=== PATIENT | female | born 1935 | race Caucasian/White ===

== ENCOUNTER 2016-06-19 21:01 | Emergency (ER) | payer MEDICARE, BC ==
[2016-06-19 21:34] VITALS: PULSE 89; RESP 18; TEMP 98.1
[2016-06-19] MEDS ORDERED: KETOROLAC 30 MG/ML 1 ML VIAL IM STA (22:13)
--- NOTE | 2016-06-19 22:19 | ED ---
ENT HPI - General Chief complaint: ENT Stated complaint: ear pain/bleeding Source: patient, RN notes reviewed Mode of arrival: ambulatory Limitations: no limitations - History of Present Illness Initial comments: Patient is an 80 year old female with chief complaint of left ear pain after being outside in the could today at approximately 12:30 this afternoon. She reports she has a history of chronic ear problems and is hard of hearing. She reports she has seen Dr. Pizarro in regards to facial fractures a few months ago and manages her hearing problems. She states that at approximately 4pm her ear started to drain blood and clear liquid. She reports the pain has not subsided and took norco at home for this. She denies any fever or chills or pain prior to being out in the cold today. 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 She denies sinus pressure, pain, headache, sore throat. - Related Data Home Medications Medication Instructions Recorded Confirmed Atenolol [Tenormin] 50 mg PO DAILY 05/03/16 05/12/16 Folic Acid 1 mg PO DAILY 05/03/16 05/12/16 Levothyroxine Sodium [Synthroid] 175 mcg PO DAILY 05/03/16 05/12/16 Lisinopril-Hctz 10-12.5 mg 1 each PO DAILY 05/03/16 05/12/16 [Zestoretic 10-12.5] Potassium Chloride [Klor-Con 20] 20 meq PO BID 05/03/16 05/12/16 Pyridostigmine [place] [Mestinon] 60 mg PO BID 05/03/16 05/12/16 Vitamin E (Dl,Tocopheryl Acet) 400 unit PO DAILY 05/03/16 05/12/16 [Vitamin E] amLODIPine [Norvasc] 5 mg PO DAILY 05/03/16 05/12/16 HYDROcodone/APAP 5-325MG [[place] 1 tab PO BID PRN 05/12/16 05/12/16 5-325] Previous Rx's Medication Instructions Recorded Clindamycin HCl 300 mg PO Q12HR #20 cap 05/12/16 Hydrocodone/Acetaminophen [[place] 1 - 2 each PO Q6HR PRN #50 tab 05/12/16 5-325] Amoxic-Pot Clav 875-125Mg 1 tab PO Q12HR #20 tablet 06/19/16 [Augmentin 875-125] Ciprofloxacin Ophth Soln [Ciloxan 10 drops LEFT EAR BID #1 bottle 06/19/16 0.3% Ophth Soln] Allergies Allergy/AdvReac Type Severity Reaction Status Date / Time oxytetracycline Allergy Anaphylaxis Verified 06/19/16 21:34 [From Terramycin] Review of Systems ROS Statement: Those systems with pertinent positive or pertinent negative responses have been documented in the HPI. ROS Other: All systems not noted in ROS Statement are negative. Past Medical History Past Medical History: COPD, GERD/Reflux, Hyperlipidemia, Hypertension, Thyroid Disorder Additional Past Medical History / Comment(s): FELL AND BROKE FACE BONES WHILE IN THE SHOWER. STATES HAD SHINGLES ABOUT 3 MONTHS AGO History of Any Multi-Drug Resistant Organisms: None Reported Past Surgical History: Adenoidectomy, Appendectomy, Cholecystectomy, Joint Replacement, Tonsillectomy, Tubal Ligation Additional Past Surgical History / Comment(s): RT TKA, BILAT CATARACT SX. D & C X 2. BENIGN GROWTH REMOVED BY RT EAR Past Anesthesia/Blood Transfusion Reactions: No Reported Reaction Past Psychological History: No Psychological Hx Reported Smoking Status: Former smoker Past Alcohol Use History: None Reported Additional Past Alcohol Use History / Comment(s): QUIT SMOKING 1970 Past Drug Use History: None Reported - Past Family History Mother Family Medical History: No Reported History General Exam - General Exam Comments Initial Comments: Pleasant 80 year old female in no acute distress. she has a cloth up to her ear and sitting up in bed. Limitations: no limitations General appearance: alert, in no apparent distress Head exam: Present: atraumatic, normocephalic, normal inspection Eye exam: Present: normal appearance, PERRL, EOMI. Absent: scleral icterus, conjunctival injection, periorbital swelling ENT exam: Present: mucous membranes moist, TM's normal bilaterally ( erythematous and draining left TM. NO evidence of perforation. ). Absent: normal exam Neck exam: Present: normal inspection. Absent: tenderness, meningismus, lymphadenopathy Respiratory exam: Present: normal lung sounds bilaterally. Absent: respiratory distress, wheezes, rales, rhonchi, stridor Cardiovascular Exam: Present: regular rate, normal rhythm, normal heart sounds. Absent: systolic murmur, diastolic murmur, rubs, gallop, clicks Extremities exam: Present: normal inspection, full ROM, normal capillary refill. Absent: tenderness, pedal edema, joint swelling, calf tenderness Back exam: Present: normal inspection Neurological exam: Present: alert, oriented X3, CN II-XII intact Psychiatric exam: Present: normal affect, normal mood Skin exam: Present: warm, dry, intact, normal color. Absent: rash Course Vital Signs 06/19/16 06/19/16 21:31 22:50 Temperature 98.1 F Pulse Rate 89 89 Respiratory 18 18 Rate Blood Pressure 214/104 204/100 O2 Sat by Pulse 96 96 Oximetry Medical Decision Making - Medical Decision Making Patient is an 80 year old female with left ear pain since being in the cold earlier today. Sh reports bloody drainage for the past few hours. She has a erythematous and no evidence of significant perforation of the TM. It is possible patient has small perforation that she has in the past that has not properly healed. Patient will be placed on Augmentin and floxacin drops. Patient advised to take at home pain medication. Patient understands treatment plan and will comply. Patient advised to follow up with Dr. Jaimes. Return parameters discussed. Disposition Clinical Impression: Otitis media Disposition: HOME SELF-CARE Condition: Good Instructions: Earache (ED), Otitis Media (ED) Additional Instructions: Follow-up with Dr. Concepcion as directed. Take antibiotics and use drops as directed. Return to the EC if any alarming signs or symptoms occur. Continue to take at home pain medication. Prescriptions: Amoxic-Pot Clav 875-125Mg [Augmentin 875-125] 1 tab PO Q12HR #20 tablet Ciprofloxacin Ophth Soln [Ciloxan 0.3% Ophth Soln] 10 drops LEFT EAR BID #1 bottle Referrals: Chasity Perez MD [Primary Care Provider] - 1-2 days Amilcar Jaimes DO [Doctor of Osteopathic Medicine] - 1-2 days Time of Disposition: 22:19
[2016-06-19] MEDS ORDERED: cloNIDine HCL 0.1 MG TAB PO STA (22:41)
[2016-06-19 22:52] VITALS: BP 204/100
== END 2016-06-19 22:52 | disposition home or self-care (01) ==
LOC: EC 21:01
DX: H66.92 Otitis media, unspecified, left ear (principal); H91.92 Unspecified hearing loss, left ear; E07.9 Disorder of thyroid, unspecified; I10 Essential (primary) hypertension; Z87.891 Personal history of nicotine dependence; Z88.1 Allergy status to other antibiotic agents; Z79.899 Other long term (current) drug therapy
CPT/HCPCS: 99282; 96372; J1885

== ENCOUNTER 2016-06-20 17:51 | Inpatient (IN) | payer MEDICARE, BC ==
[2016-06-20] MEDS ORDERED: ACETAMINOPHEN IV (For NPO) 1,000 MG in EMPTY BAG 1 BAG IVPB STA (18:03)
[2016-06-20] MEDS ORDERED: SODIUM CHLORIDE 0.9% 1,000 ML IV STA ×3 (18:03→20:28)
[2016-06-20] MEDS ORDERED: IV VANCOMYCIN PER PHARMACY 1 EACH MISC MISCELLANE PRN (18:04)
[2016-06-20] MEDS ORDERED: KETOROLAC 30 MG/ML 1 ML VIAL IVP STA (18:04)
[2016-06-20] MEDS ORDERED: PROPOFOL 500 MG in EMPTY BAG 1 BAG IV ONE (18:17)
[2016-06-20] MEDS ORDERED: PIPERACILLIN-TAZOBACTAM 3.375 GM in DEXTROSE/WATER 1 50ML.BAG IVPB STA (18:18)
[2016-06-20 19:00] LABS: CH 30.1; CHCM 30.6; HCT 44.3 % (34.0-46.0); HDW 2.04; HGB 13.6 gm/dL (11.4-16.0); Hypochromasia Slight; Immature Gran Flag Marked; MCH 30.3 pg (25.0-35.0); MCHC 30.7 g/dL (31.0-37.0); MCV 98.7 fL (80.0-100.0); Mean Platelet Volume 8.2; RBC 4.49 m/uL (3.80-5.40); RDW 14.1 % (11.5-15.5); WBC 13.3 k/uL (3.8-10.6); WBC (Perox) 13.64
[2016-06-20] MEDS ORDERED: VANCOMYCIN 1,500 MG in SODIUM CHLORIDE 0.9% 250 ML IVPB ONE (19:00)
[2016-06-20 19:11] LABS: Appearance,Urine Clear (Clear); Bilirubin,Urine Negative (Negative); Glucose,Urine (UA) Negative (Negative); Ketones,Urine Negative (Negative); Leukocyte Esterase,Urine Negative (Negative); Nitrite,Urine Negative (Negative); Protein,Urine 1+ (Negative); RBC,Urine >182 /hpf (0-5); Specific Gravity,Urine 1.025 (1.001-1.035); Squamous Epithelial Cell,Urine <1 /hpf (0-4); UA Billing (MACRO vs. MICRO) MICRO; Urobilinogen,Urine <2.0 mg/dL (<2.0); WBC,Urine 2 /hpf (0-5)
[2016-06-20 19:12] LABS: Amorphous Sediment,Urine Occasional /hpf; Mucus,Urine Rare /hpf; Particle Count 1821
[2016-06-20 19:15] LABS: ALT 23 U/L (9-52); AST 28 U/L (14-36); Alkaline Phosphatase 94 U/L (38-126); Anion Gap 12 mmol/L; Blood Urea Nitrogen 14 mg/dL (7-17); Calcium 8.7 mg/dL (8.4-10.2); Carbon Dioxide 21 mmol/L (22-30); Chloride 106 mmol/L (98-107); Glucose 139 mg/dL (74-99); Magnesium 1.3 mg/dL (1.6-2.3); Non-African American GFR(MDRD) >60 (>60 ml/min/1.73 sqM); Phosphorous 2.4 mg/dL (2.5-4.5); Potassium 3.1 mmol/L (3.5-5.1); Sodium 139 mmol/L (137-145); Total Bilirubin 0.8 mg/dL (0.2-1.3)
--- NOTE | 2016-06-20 19:26 | ED ---
General Adult HPI - General Chief complaint: Altered Mental Status Stated complaint: confusion/weakness Time Seen by Provider: 06/20/16 17:55 Source: EMS, RN notes reviewed, old records reviewed Mode of arrival: EMS - History of Present Illness Initial comments: This is a 80-year-old female in the ER for evaluation. Patient is presenting for evaluation of mental status. Patient is unable with history secondary to being intubated and sedated at this time. History obtained from patient chart and EMS - Related Data Home Medications Medication Instructions Recorded Confirmed Atenolol [Tenormin] 50 mg PO DAILY 05/03/16 05/12/16 Folic Acid 1 mg PO DAILY 05/03/16 05/12/16 Levothyroxine Sodium [Synthroid] 175 mcg PO DAILY 05/03/16 05/12/16 Lisinopril-Hctz 10-12.5 mg 1 each PO DAILY 05/03/16 05/12/16 [Zestoretic 10-12.5] Potassium Chloride [Klor-Con 20] 20 meq PO BID 05/03/16 05/12/16 Pyridostigmine [place] [Mestinon] 60 mg PO BID 05/03/16 05/12/16 Vitamin E (Dl,Tocopheryl Acet) 400 unit PO DAILY 05/03/16 05/12/16 [Vitamin E] amLODIPine [Norvasc] 5 mg PO DAILY 05/03/16 05/12/16 HYDROcodone/APAP 5-325MG [[place] 1 tab PO BID PRN 05/12/16 05/12/16 5-325] Previous Rx's Medication Instructions Recorded Clindamycin HCl 300 mg PO Q12HR #20 cap 05/12/16 Hydrocodone/Acetaminophen [[place] 1 - 2 each PO Q6HR PRN #50 tab 05/12/16 5-325] Amoxic-Pot Clav 875-125Mg 1 tab PO Q12HR #20 tablet 06/19/16 [Augmentin 875-125] Ciprofloxacin Ophth Soln [Ciloxan 10 drops LEFT EAR BID #1 bottle 06/19/16 0.3% Ophth Soln] Allergies Allergy/AdvReac Type Severity Reaction Status Date / Time oxytetracycline Allergy Anaphylaxis Verified 06/20/16 18:14 [From Terramycin] polymyxin B Allergy Unknown Verified 06/20/16 18:45 Review of Systems ROS Statement: Those systems with pertinent positive or pertinent negative responses have been documented in the HPI. ROS Other: All systems not noted in ROS Statement are negative. Past Medical History Past Medical History: COPD, GERD/Reflux, Hyperlipidemia, Hypertension, Thyroid Disorder Additional Past Medical History / Comment(s): FELL AND BROKE FACE BONES WHILE IN THE SHOWER. STATES HAD SHINGLES ABOUT 3 MONTHS AGO History of Any Multi-Drug Resistant Organisms: None Reported Past Surgical History: Adenoidectomy, Appendectomy, Cholecystectomy, Joint Replacement, Tonsillectomy, Tubal Ligation Additional Past Surgical History / Comment(s): RT TKA, BILAT CATARACT SX. D & C X 2. BENIGN GROWTH REMOVED BY RT EAR Past Anesthesia/Blood Transfusion Reactions: No Reported Reaction Past Psychological History: No Psychological Hx Reported Smoking Status: Former smoker Past Alcohol Use History: None Reported Additional Past Alcohol Use History / Comment(s): QUIT SMOKING 1970 Past Drug Use History: None Reported - Past Family History Mother Family Medical History: No Reported History General Exam Limitations: altered mental status, physical limitation General appearance: obtunded Head exam: Present: atraumatic, normocephalic, normal inspection Eye exam: Present: normal appearance, PERRL, EOMI. Absent: scleral icterus, conjunctival injection, periorbital swelling ENT exam: Present: normal exam, mucous membranes moist Neck exam: Present: normal inspection. Absent: tenderness, meningismus, lymphadenopathy Respiratory exam: Present: normal lung sounds bilaterally. Absent: respiratory distress, wheezes, rales, rhonchi, stridor Cardiovascular Exam: Present: normal rhythm, tachycardia, normal heart sounds. Absent: systolic murmur, diastolic murmur, rubs, gallop, clicks GI/Abdominal exam: Present: soft, normal bowel sounds. Absent: distended, tenderness, guarding, rebound, rigid Extremities exam: Present: normal inspection, full ROM, normal capillary refill. Absent: tenderness, pedal edema, joint swelling, calf tenderness Back exam: Present: normal inspection Neurological exam: Present: alert, oriented X3, CN II-XII intact Psychiatric exam: Present: normal affect, normal mood Skin exam: Present: warm, dry, intact, normal color. Absent: rash Course Vital Signs 06/20/16 06/20/16 18:15 19:13 Temperature 98.4 F 100.4 F H Pulse Rate 120 H 150 H Respiratory 20 20 Rate Blood Pressure 177/91 178/88 O2 Sat by Pulse 99 100 Oximetry - Reevaluation(s) Reevaluation #1: 06/20/16 19:22 Spoke with transient physician regarding patient, patient with positive fever, positive altered mental status Reevaluation #2: 06/20/16 19:23 2 attempts were made at getting lumbar puncture with patient in upright sitting position. Procedures - Lumbar Puncture Consent Obtained: emergent situation Time Out Performed: Yes Indication for Procedure: fever work up Patient Position: sitting upright/leaning forward Skin Prep: Povidone-Iodine 1% Spinal Needle Gauge: 22G Spinal Needle Length: 3in Interspace Used: L4-L5 Complications: unable to obtain CSF Medical Decision Making - Medical Decision Making 80 female to the ED, patient was a transfer paperwork for altered mental status fever and sepsis. Patient at this time is being covered for broad-spectrum coverage of possible infections including meningitis, septic ear infection or meningitis from possible [place] mastoiditis from ear infection. Patient will be admitted to the ICU for evaluation and treatment hemodynamic status and monitoring - Lab Data Result diagrams: 06/20/16 18:38 06/20/16 18:38 Lab Results 06/20/16 06/20/16 06/20/16 Range/Units 18:38 18:38 18:38 WBC 13.3 H (3.8-10.6) k/uL RBC 4.49 (3.80-5.40) m/uL Hgb 13.6 (11.4-16.0) gm/dL Hct 44.3 (34.0-46.0) % MCV 98.7 (80.0-100.0) fL MCH 30.3 (25.0-35.0) pg MCHC 30.7 L (31.0-37.0) g/dL RDW 14.1 (11.5-15.5) % Plt Count 181 (150-450) k/uL Sodium 139 (137-145) mmol/L Potassium 3.1 L (3.5-5.1) mmol/L Chloride 106 (98-107) mmol/L Carbon Dioxide 21 L (22-30) mmol/L Anion Gap 12 mmol/L BUN 14 (7-17) mg/dL Creatinine 0.67 (0.52-1.04) mg/dL Est GFR (MDRD) Af Amer >60 (>60 ml/min/1.73 sqM) Est GFR (MDRD) Non-Af >60 (>60 ml/min/1.73 sqM) Glucose 139 H (74-99) mg/dL Calcium 8.7 (8.4-10.2) mg/dL Phosphorus 2.4 L (2.5-4.5) mg/dL Magnesium 1.3 L (1.6-2.3) mg/dL Total Bilirubin 0.8 (0.2-1.3) mg/dL AST 28 (14-36) U/L ALT 23 (9-52) U/L Alkaline Phosphatase 94 (38-126) U/L Total Creatine Kinase 151 H (30-135) U/L Total Protein 7.0 (6.3-8.2) g/dL Albumin 3.6 (3.5-5.0) g/dL Urine Color Urine Appearance (Clear) Urine pH (5.0-8.0) Ur Specific [place] (1.001-1.035) Urine Protein (Negative) Urine Glucose (UA) (Negative) Urine Ketones (Negative) Urine Blood (Negative) Urine Nitrate (Negative) Urine Bilirubin (Negative) Urine Urobilinogen (<2.0) mg/dL Ur Leukocyte Esterase (Negative) Urine RBC (0-5) /hpf Urine WBC (0-5) /hpf Ur Squamous Epith Cells (0-4) /hpf Amorphous Sediment (None) /hpf Urine Mucus (None) /hpf 06/20/16 Range/Units 18:38 WBC (3.8-10.6) k/uL RBC (3.80-5.40) m/uL Hgb (11.4-16.0) gm/dL Hct (34.0-46.0) % MCV (80.0-100.0) fL MCH (25.0-35.0) pg MCHC (31.0-37.0) g/dL RDW (11.5-15.5) % Plt Count (150-450) k/uL Sodium (137-145) mmol/L Potassium (3.5-5.1) mmol/L Chloride (98-107) mmol/L Carbon Dioxide (22-30) mmol/L Anion Gap mmol/L BUN (7-17) mg/dL Creatinine (0.52-1.04) mg/dL Est GFR (MDRD) Af Amer (>60 ml/min/1.73 sqM) Est GFR (MDRD) Non-Af (>60 ml/min/1.73 sqM) Glucose (74-99) mg/dL Calcium (8.4-10.2) mg/dL Phosphorus (2.5-4.5) mg/dL Magnesium (1.6-2.3) mg/dL Total Bilirubin (0.2-1.3) mg/dL AST (14-36) U/L ALT (9-52) U/L Alkaline Phosphatase (38-126) U/L Total Creatine Kinase (30-135) U/L Total Protein (6.3-8.2) g/dL Albumin (3.5-5.0) g/dL Urine Color Yellow Urine Appearance Clear (Clear) Urine pH 6.0 (5.0-8.0) Ur Specific [place] 1.025 (1.001-1.035) Urine Protein 1+ H (Negative) Urine Glucose (UA) Negative (Negative) Urine Ketones Negative (Negative) Urine Blood Large H (Negative) Urine Nitrate Negative (Negative) Urine Bilirubin Negative (Negative) Urine Urobilinogen <2.0 (<2.0) mg/dL Ur Leukocyte Esterase Negative (Negative) Urine RBC >182 H (0-5) /hpf Urine WBC 2 (0-5) /hpf Ur Squamous Epith Cells <1 (0-4) /hpf Amorphous Sediment Occasional H (None) /hpf Urine Mucus Rare H (None) /hpf - Radiology Data Radiology results: image reviewed (CT brain from transferring facility was negative) Critical Care Time Critical Care Time: Yes Total Critical Care Time: 31 Disposition Clinical Impression: Altered mental status, Otitis media, Fever, SIRS (systemic inflammatory response syndrome), SVT (supraventricular tachycardia), Sinus tachycardia Disposition: ADMITTED IP TO THIS [facility] Condition: Critical Referrals: Chasity Perez MD [Primary Care Provider] - 1-2 days
[2016-06-20] MEDS: SODIUM CHLORIDE 0.9% 1,000 ML IV STA ×2 (19:41→23:04)
--- NOTE | 2016-06-20 19:53 | XR ---
EXAMINATION TYPE: XR chest 1V portable DATE OF EXAM: 06/20/2016 7:49 PM HISTORY: Shortness of breath. COMPARISON: None. TECHNIQUE: Single view of the chest is submitted. FINDINGS: Endotracheal tube and NG tubes are appropriately placed. Demonstrated are scattered senescent parenchymal change. There is no evidence for focal infiltrate. The heart is stable. Hilar and mediastinal structures are within normal limits. Degenerative changes are seen of the dorsal spine. IMPRESSION: 1. Chronic changes without evidence for acute pulmonary disease.
[2016-06-20 19:54] LABS: INR 1.2 (<1.1); Prothrombin Time 12.2 sec (9.0-12.0)
[2016-06-20 19:55] LABS: Partial Thromboplastin Time 21.6 sec (22.0-30.0)
[2016-06-20 19:58] LABS: Troponin I 0.341 ng/mL (0.000-0.034)
[2016-06-20 19:59] LABS: Add Differential Manual Differential
[2016-06-20 20:02] LABS: Manual Review Performed; Nucleated Red Blood Cells 0 /100 WBC (0-0); Total Cells Counted 100
--- NOTE | 2016-06-20 20:08 | ED ---
Medical Decision Making - Lab Data Result diagrams: 06/20/16 18:38 06/20/16 18:38 Lab Results 06/20/16 06/20/16 06/20/16 Range/Units 18:38 18:38 18:38 WBC 13.3 H (3.8-10.6) k/uL RBC 4.49 (3.80-5.40) m/uL Hgb 13.6 (11.4-16.0) gm/dL Hct 44.3 (34.0-46.0) % MCV 98.7 (80.0-100.0) fL MCH 30.3 (25.0-35.0) pg MCHC 30.7 L (31.0-37.0) g/dL RDW 14.1 (11.5-15.5) % Plt Count 181 (150-450) k/uL Neutrophils % (Manual) 65.0 % Band Neutrophils % 26.0 % Lymphocytes % (Manual) 4.0 % Monocytes % (Manual) 5.0 % Neutrophils # (Manual) 12.1 H (1.3-7.7) k/uL Lymphocytes # (Manual) 0.5 L (1.0-4.8) k/uL Monocytes # (Manual) 0.7 (0-1.0) k/uL Nucleated RBCs 0 (0-0) /100 WBC Manual Slide Review Performed Hypochromasia Slight PT (9.0-12.0) sec INR (<1.1) APTT (22.0-30.0) sec Sodium 139 (137-145) mmol/L Potassium 3.1 L (3.5-5.1) mmol/L Chloride 106 (98-107) mmol/L Carbon Dioxide 21 L (22-30) mmol/L Anion Gap 12 mmol/L BUN 14 (7-17) mg/dL Creatinine 0.67 (0.52-1.04) mg/dL Est GFR (MDRD) Af Amer >60 (>60 ml/min/1.73 sqM) Est GFR (MDRD) Non-Af >60 (>60 ml/min/1.73 sqM) Glucose 139 H (74-99) mg/dL Calcium 8.7 (8.4-10.2) mg/dL Phosphorus 2.4 L (2.5-4.5) mg/dL Magnesium 1.3 L (1.6-2.3) mg/dL Total Bilirubin 0.8 (0.2-1.3) mg/dL AST 28 (14-36) U/L ALT 23 (9-52) U/L Alkaline Phosphatase 94 (38-126) U/L Total Creatine Kinase 151 H (30-135) U/L CK-MB (CK-2) 4.0 H* (0.0-2.4) ng/mL CK-MB (CK-2) Rel Index 2.6 Troponin I 0.341 H* (0.000-0.034) ng/mL Total Protein 7.0 (6.3-8.2) g/dL Albumin 3.6 (3.5-5.0) g/dL Urine Color Urine Appearance (Clear) Urine pH (5.0-8.0) Ur Specific [place] (1.001-1.035) Urine Protein (Negative) Urine Glucose (UA) (Negative) Urine Ketones (Negative) Urine Blood (Negative) Urine Nitrate (Negative) Urine Bilirubin (Negative) Urine Urobilinogen (<2.0) mg/dL Ur Leukocyte Esterase (Negative) Urine RBC (0-5) /hpf Urine WBC (0-5) /hpf Ur Squamous Epith Cells (0-4) /hpf Amorphous Sediment (None) /hpf Urine Mucus (None) /hpf 06/20/16 06/20/16 Range/Units 18:38 18:38 WBC (3.8-10.6) k/uL RBC (3.80-5.40) m/uL Hgb (11.4-16.0) gm/dL Hct (34.0-46.0) % MCV (80.0-100.0) fL MCH (25.0-35.0) pg MCHC (31.0-37.0) g/dL RDW (11.5-15.5) % Plt Count (150-450) k/uL Neutrophils % (Manual) % Band Neutrophils % % Lymphocytes % (Manual) % Monocytes % (Manual) % Neutrophils # (Manual) (1.3-7.7) k/uL Lymphocytes # (Manual) (1.0-4.8) k/uL Monocytes # (Manual) (0-1.0) k/uL Nucleated RBCs (0-0) /100 WBC Manual Slide Review Hypochromasia PT 12.2 H (9.0-12.0) sec INR 1.2 (<1.1) APTT 21.6 L (22.0-30.0) sec Sodium (137-145) mmol/L Potassium (3.5-5.1) mmol/L Chloride (98-107) mmol/L Carbon Dioxide (22-30) mmol/L Anion Gap mmol/L BUN (7-17) mg/dL Creatinine (0.52-1.04) mg/dL Est GFR (MDRD) Af Amer (>60 ml/min/1.73 sqM) Est GFR (MDRD) Non-Af (>60 ml/min/1.73 sqM) Glucose (74-99) mg/dL Calcium (8.4-10.2) mg/dL Phosphorus (2.5-4.5) mg/dL Magnesium (1.6-2.3) mg/dL Total Bilirubin (0.2-1.3) mg/dL AST (14-36) U/L ALT (9-52) U/L Alkaline Phosphatase (38-126) U/L Total Creatine Kinase (30-135) U/L CK-MB (CK-2) (0.0-2.4) ng/mL CK-MB (CK-2) Rel Index Troponin I (0.000-0.034) ng/mL Total Protein (6.3-8.2) g/dL Albumin (3.5-5.0) g/dL Urine Color Yellow Urine Appearance Clear (Clear) Urine pH 6.0 (5.0-8.0) Ur Specific [place] 1.025 (1.001-1.035) Urine Protein 1+ H (Negative) Urine Glucose (UA) Negative (Negative) Urine Ketones Negative (Negative) Urine Blood Large H (Negative) Urine Nitrate Negative (Negative) Urine Bilirubin Negative (Negative) Urine Urobilinogen <2.0 (<2.0) mg/dL Ur Leukocyte Esterase Negative (Negative) Urine RBC >182 H (0-5) /hpf Urine WBC 2 (0-5) /hpf Ur Squamous Epith Cells <1 (0-4) /hpf Amorphous Sediment Occasional H (None) /hpf Urine Mucus Rare H (None) /hpf Disposition Clinical Impression: Altered mental status, Otitis media, Fever, SIRS (systemic inflammatory response syndrome), SVT (supraventricular tachycardia), Sinus tachycardia, Meningitis Disposition: ADMITTED IP TO THIS HOSP Condition: Critical Referrals: Chasity Perez MD [Primary Care Provider] - 1-2 days
[2016-06-20] MEDS ORDERED: NALOXONE 0.4 MG/ML 1 ML VIAL IV PRN (20:25)
[2016-06-20] MEDS: MAGNESIUM SULFATE-D5W PMX 1 GM in DEXTROSE/WATER 1 100ML.BAG IVPB SCH ×2 (20:26→21:51)
[2016-06-20] MEDS ORDERED: SODIUM CHLORIDE 0.9% 500 ML IV STA (20:28)
[2016-06-20] MEDS ORDERED: SODIUM CHLORIDE 0.9% 2,000 ML IV STA (20:28)
[2016-06-20] MEDS: SODIUM CHLORIDE 0.9% 500 ML IV SCH ×2 (20:31→23:04)
[2016-06-20 20:36] LABS: Glucose,CSF <20 mg/dL (40-70)
[2016-06-20 20:58] LABS: Appearance,CSF Cloudy
[2016-06-20] MEDS ORDERED: DILTIAZEM 5 MG/ML 5 ML VIAL IVP STA (21:03)
[2016-06-20 21:15] LABS: Diff, Total Cells Cnt, CSF 100; Polynuclear WBC,CSF 95 %
--- NOTE | 2016-06-20 22:46 | CT ---
EXAMINATION TYPE: CT iac wo con DATE OF EXAM: 06/20/2016 10:30 PM COMPARISON: NONE HISTORY: Ear infection followed by altered mental status. CT DLP: 142.70mGycm Automated exposure control for dose reduction was used. FINDINGS: There is normal appearance of the right external auditory canal and the middle ear cavity. There is normal aeration of the epitympanic recess on the right side. There is an air-filled cavity i n the right temporal bone consistent with mastoidectomy. On the left side there is complete opacification of the left mastoid air cells. There is also soft ti ssue swelling and occlusion of the left external auditory canal externally. There is air in the inner aspect of the external auditory canal. There is complete opacification of the left middle ear cavity . I see no focal bone destruction. There is some sclerosis in the left mastoid sinus. There is normal appearance of the internal auditory canals. I see no evidence of a cerebellopontine a ngle mass. The exam is limited by lack of contrast. There is mucosal thickening in the sphenoid ethmoid and maxillary sinuses. IMPRESSION: Previous right mastoid surgery. There is evidence of otitis externa and interna on the left side with complete opacification of the m iddle ear cavity. 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 There is pansinusitis. The possibility of cholesteatoma should be considered involving the left middl e ear.
[2016-06-20 23:02] LABS: Glucose,Whole Blood 197 mg/dL (75-99)
[2016-06-20] MEDS: FAMOTIDINE 20 MG/2 ML VIAL IV SCH (23:05)
[2016-06-20 23:07] LABS: ABG PCO2 37 mmHg (35-45); ABG PH 7.32 (7.35-7.45); ABG PO2 109 mmHg (83-108)
[2016-06-20 23:08] LABS: ABG Base Excess -6.3 mmol/L; ABG HCO3 19 mmol/L (21-25); ABG TCO2 20 mmol/L (19-24)
--- NOTE | 2016-06-20 23:33 | P.PN ---
Progress Note - Text Anesthesia was requested to perform a lumbar puncture by Dr. Guanaco Dodge. The patient has a suspected history of meningitis. Attempts to perform a lumbar puncture by the emergency room physicians were unsuccessful. The patient is currently intubated and unresponsive. The patient was placed in the right lateral recumbent position. The low back was sterilely prepped and draped. After local infiltration with 1% Xylocaine a 22-gauge quickie needle was placed in the subarachnoid space at L3-L4. This was performed without difficulty. Proximally 8 mL of spinal fluid was obtained. Approximately 2 mL per collection tube. Fluid was cloudy and remained cloudy in all 4 tubes. The needle was withdrawn. The patient tolerated the procedure well. The color and turbidity of the fluid was reported to the emergency room physician. The collection tubes were sent to lab per per the emergency room.
[2016-06-21] MEDS ORDERED: PIPERACILLIN-TAZOBACTAM 3.375 GM in DEXTROSE/WATER 1 50ML.BAG IVPB SCH
[2016-06-21] MEDS: PYRIDOSTIGMINE 60 MG TAB PO SCH ×3 (00:05→15:51)
[2016-06-21] MEDS ORDERED: LORazepam 2 MG/ML SYRINGE IV PRN (00:20)
[2016-06-21] MEDS ORDERED: PROPOFOL 50 ML IV ONE ×4 (01:54→19:01)
[2016-06-21 01:56] LABS: Creatine Kinase MB 6.5 ng/mL (0.0-2.4); Troponin I 1.06 ng/mL (0.000-0.034)
[2016-06-21] MEDS: MORPHINE SULFATE 4 MG/ML SYRINGE IV PRN ×2 (04:34→17:48)
[2016-06-21 05:17] LABS: ABG Base Excess -4.5 mmol/L; ABG HCO3 20 mmol/L (21-25); ABG PCO2 32 mmHg (35-45); ABG PO2 157 mmHg (83-108); ABG TCO2 21 mmol/L (19-24)
[2016-06-21 06:13] LABS: Glucose,Whole Blood 116 mg/dL (75-99)
[2016-06-21 07:12] LABS: CHCM 29.9; HCT 40.3 % (34.0-46.0); HDW 2.07; HGB 11.9 gm/dL (11.4-16.0); Hypochromasia Moderate; Immature Gran Flag Marked; MCH 29.8 pg (25.0-35.0); MCHC 29.6 g/dL (31.0-37.0); MCV 100.9 fL (80.0-100.0); Macrocytosis Slight; RDW 14.2 % (11.5-15.5); WBC 20.5 k/uL (3.8-10.6); WBC (Perox) 21.59
[2016-06-21 07:16] LABS: ALT 27 U/L (9-52); AST 22 U/L (14-36); Alkaline Phosphatase 71 U/L (38-126); Anion Gap 9 mmol/L; Blood Urea Nitrogen 14 mg/dL (7-17); Calcium 7.8 mg/dL (8.4-10.2); Carbon Dioxide 21 mmol/L (22-30); Chloride 108 mmol/L (98-107); Glucose 114 mg/dL (74-99); Non-African American GFR(MDRD) >60 (>60 ml/min/1.73 sqM); Phosphorous 3.3 mg/dL (2.5-4.5); Potassium 3.6 mmol/L (3.5-5.1); Sodium 138 mmol/L (137-145); Total Bilirubin 0.3 mg/dL (0.2-1.3); Total Protein 5.4 g/dL (6.3-8.2)
[2016-06-21 07:52] LABS: Add Differential Manual Differential; Creatine Kinase MB 6.3 ng/mL (0.0-2.4); Troponin I 1.15 ng/mL (0.000-0.034)
[2016-06-21 07:57] LABS: Metamyelocytes % 0.5 %; Nucleated Red Blood Cells 0 /100 WBC (0-0); Total Cells Counted 200
--- NOTE | 2016-06-21 08:11 | XR ---
EXAMINATION TYPE: XR chest 1V portable DATE OF EXAM: 06/21/2016 7:02 AM CLINICAL HISTORY: Difficulty breathing progress study. TECHNIQUE: Single AP portable semiupright view of the chest is obtained. COMPARISON: Chest x-ray from one day earlier FINDINGS: An endotracheal tube, and orogastric tube are stable in appearance. Cardiac silhouette size is stable and upper limits of normal with atherosclerotic thoracic aorta. The re is chronic parenchymal change without suspicious focal airspace opacity, pleural effusion, or pneu mothorax seen bilaterally. Osseous structures are demineralized. High riding humeral head suggests ch ronic rotator cuff tears bilaterally. IMPRESSION: Overall stable findings, chronic parenchymal changes without acute pulmonary process.
--- NOTE | 2016-06-21 08:38 | P.CNPUL ---
History of Present Illness Consult date: 06/21/16 Chief complaint: Meningitis History of present illness: 80-year-old female patient who initially presented to [facility] with fever, change in mental status and agitation. The patient accordingly was transferred to our hospital for further care. In the emergency department the patient was found to be significantly confused and at a later stage became unresponsive, and she was intubated and placed on a mechanical ventilator. Lumbar puncture was done and the patient was found to have abnormalities consistent with acute meningitis specifically with elevated CSF white cell count , low glucose and markedly elevated protein. The Gram stain is showing gram- positive cocci. As such the patient was given a dose of vancomycin and started on Rocephin 2 g every 12 hours. The patient was kept intubated and then got moved to the intensive care unit for further care. This patient has previous history of chronic ear infections and mastoids disease /mastoiditis. The patient had a fall approximately 6 weeks ago and she had her face on a metal bar at the shower door. She end up having a very bloody large right glabellar laceration, left eyebrow laceration and ended up having a nasal bone and septal fracture with septum being deviated to the left. CAT scan was done back then and it showed medial maxillary sinus fracture and septal deviation/fracture along with the glabellar and left brow laceration. Based on this, the patient was taken to the operating room by ENT on 05/12/2016 and the patient underwent open reduction of a nasal bone fracture with fixation, septoplasty, closed reduction of the left axillary fracture. Subsequently, the patient was seen in our emergency department on 06/19/2016 for left ear pain. She was also having difficulty in hearing. There was also reported drainage from the left ear where bloody purulent drainage was reported. She denies having any fever or headache neck stiffness or any change in mental status back then. Apparently there is history of bilateral perforation of the eardrums. The patient accordingly was given Augmentin network technician 875 mg 1 tablet twice a day in addition to ciprofloxacin ear solution and she was discharged home to be followed up by her primary care physician and ENT. Her condition decompensated and she presented back to the emergency department a day later with acute meningitis. At this point in time, the patient is intubated on a mechanical ventilator. She is an assist-control mode of breathing at the rate of 12, tidal volume 450, FiO2 of 50% and a PEEP of 5. She had received a total of 2 L of IV fluid in the form of normal saline as bolus and she is hemodynamically stable. She is on no pressors. She is currently on a maintenance fluid of 0.9 normal saline at the rate of 100 mL an hour. She is sedated with Diprivan and it is running at 25 mics. She is producing adequate amount of urine output. CAT scan of the auditory canals showed evidence of otitis externa and otitis interna on the left side with complete opacification of the middle ear cavity. There is also also sclerosis of the left mastoid consistent with chronic mastoiditis. The patient also had evidence of pansinusitis. Possibility of cholesteatoma was also raised in the left ear. The left ear is currently draining some purulent material and the drainage is cloudy/creamy and nonbloody. Note that in the emergency department the patient went into SVT. The patient was given adenosine and subsequently she converted into A. fib/RVR and then into sinus rhythm. Her current rhythm is sinus at this point. 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, hypertension, impaired hearing, station tube dysfunction, chronic perforation of the tympanic membrane, hypothyroidism, GERD History of Any Multi-Drug Resistant Organisms: None Reported Past Surgical History: Adenoidectomy, Appendectomy, Cholecystectomy, Joint Replacement, Tonsillectomy, Tubal Ligation Additional Past Surgical History / Comment(s): Right total knee replacement, bilateral cataract surgery, D&C, benign growth removed from the right ear, recent surgery involving open reduction of the nasal bone fracture with fixation , septoplasty and closed reduction of a left maxillary fracture. Past Anesthesia/Blood Transfusion Reactions: No Reported Reaction Past Psychological History: No Psychological Hx Reported Smoking Status: Former smoker Past Alcohol Use History: None Reported Additional Past Alcohol Use History / Comment(s): QUIT SMOKING 1970 Past Drug Use History: None Reported - Past Family History Mother Family Medical History: No Reported History Medications and Allergies Home Medications Medication Instructions Recorded Confirmed Type Atenolol [Tenormin] 50 mg PO DAILY 05/03/16 06/20/16 History Folic Acid 1 mg PO DAILY 05/03/16 06/20/16 History Levothyroxine Sodium [Synthroid] 175 mcg PO DAILY 05/03/16 06/20/16 History Lisinopril-Hctz 10-12.5 mg 1 tab PO DAILY 05/03/16 06/20/16 History [Zestoretic 10-12.5] Pyridostigmine [place] [Mestinon] 60 mg PO TID 05/03/16 06/20/16 History amLODIPine [Norvasc] 5 mg PO DAILY 05/03/16 06/20/16 History HYDROcodone/APAP 5-325MG [[place] 1 tab PO BID PRN 05/12/16 06/20/16 History 5-325] Esomeprazole Magnesium [NexIUM] 40 mg PO DAILY 06/20/16 06/20/16 History Lovastatin [Mevacor] 20 mg PO HS 06/20/16 06/20/16 History Potassium Bicarbonate/Cit AC 25 meq PO DAILY 06/20/16 06/20/16 History [Potassium 25 Meq Tablet Eff] Allergies Allergy/AdvReac Type Severity Reaction Status Date / Time oxytetracycline Allergy Anaphylaxis Verified 06/20/16 18:14 [From Terramycin] polymyxin B Allergy Unknown Verified 06/20/16 18:45 Physical Exam Vitals: Vital Signs Temp Pulse Resp BP Pulse Ox 06/21/16 08:00 99 14 94/50 98 06/21/16 07:30 98 13 93/53 97 06/21/16 07:00 99 12 93/48 97 06/21/16 06:30 101 H 13 90/51 98 06/21/16 06:00 100 13 97/54 98 06/21/16 05:30 101 H 14 104/59 99 06/21/16 05:00 100 13 136/79 99 06/21/16 04:30 97.0 F L 111 H 12 145/80 98 06/21/16 04:00 106 H 20 137/77 98 06/21/16 03:30 105 H 19 124/73 99 06/21/16 03:00 102 H 21 116/78 98 06/21/16 02:30 104 H 22 120/73 98 06/21/16 02:00 111 H 17 110/69 98 06/21/16 01:30 100 20 98/62 98 06/21/16 01:00 98 18 96/64 99 06/21/16 00:30 99 20 98/62 99 06/21/16 00:00 101 H 17 97/59 98 06/20/16 23:30 103 H 18 103/63 98 06/20/16 23:00 97.8 F 109 H 18 154/87 97 06/20/16 22:04 97.0 F L 120 H 18 157/68 99 06/20/16 20:34 152 H 20 167/81 98 06/20/16 20:10 98.1 F 160 H 20 144/102 98 Intake and Output 06/20/16 06/21/16 06/21/16 22:59 06:59 14:59 Intake Total 850.0 200 Output Total 672 89 Balance 178.0 111 Intake: IV 850.0 200 Piperacillin-Tazobactam 3 50.0 .375 gm In Dextrose/Water 1 50ml.bag @ 12.5 mls/hr IVPB ONCE STA Rx#: [id number] Sodium Chloride 0.9% 1, 800 200 000 ml @ 100 mls/hr IV . Q10H STA Rx#:[id number] Output: Gastric Drainage 250 Urine 422 89 Other: Voiding Method Indwelling Catheter Weight 77.4 kg ABP, PAP, CO, CI - Last 8 Hours Arterial Blood Pressure 94/46 Arterial Blood Pressure 91/44 Arterial Blood Pressure 96/49 Arterial Blood Pressure 99/47 Arterial Blood Pressure 98/44 Patient is sedated, intubated, on a mechanical ventilator. Orogastric and orotracheal tube are both in place. Head is atraumatic and normocephalic. There is no neck stiffness. There is no goiter or neck masses. There is no JVDs. No cervical lymphadenopathy. The left ear canal is completely obliterated with purulent material and appropriate dressing was applied to control the drainage. Examination of the left ear was somewhat limited because of the excess amount of purulent material occupying the left ear canal. The eardrum and the tympanic membrane and the rest of the the structures cannot be assessed. No purulent drainage from the sinuses. The right ear is within normal limits.Lungs were clear to auscultation and percussion, and with normal diaphragmatic excursion. No wheezes or rales were noted. Cardiac exam revealed the PMI to be normally situated and sized. The rhythm was regular and no extrasystoles were noted during several minutes of auscultation. The first and second heart sounds were normal and physiologic splitting of the second heart sound was noted. There were no murmurs, rubs, clicks, or gallops.Abdominal exam revealed normal bowel sounds. The abdomen was soft, non-tender, and without masses, organomegaly, or appreciable enlargement of the abdominal aorta.Examination of the extremities revealed easily palpable radial, femoral and pedal pulses. There was no cyanosis, clubbing or edema. Neurologically the patient's pupils around 3-4 mm in size, she is withdrawing to a full stimuli in all 4 extremities. No Babinski. No clonus. No hyperreflexia. Results - Laboratory Findings CBC and BMP: 06/21/16 06:40 06/21/16 06:40 ABG ABG pH 7.40 (7.35-7.45) 06/21/16 04:44 ABG pCO2 32 mmHg (35-45) L 06/21/16 04:44 ABG pO2 157 mmHg (83-108) H 06/21/16 04:44 ABG O2 Saturation 99.0 % (94-97) H 06/21/16 04:44 PT/INR, D-dimer PT 12.2 sec (9.0-12.0) H 06/20/16 18:38 INR 1.2 (<1.1) 06/20/16 18:38 Abnormal lab findings: Abnormal Labs 06/20/16 06/20/16 06/20/16 20:05 22:42 23:03 WBC MCV MCHC Neutrophils # (Manual) Lymphocytes # (Manual) Monocytes # (Manual) ABG pH 7.32 L ABG pCO2 ABG pO2 109 H ABG HCO3 19 L ABG O2 Saturation 98.0 H Chloride Carbon Dioxide Glucose POC Glucose (mg/dL) 197 H Calcium CK-MB (CK-2) Troponin I Total Protein Albumin CSF Tot Nucleated Cells 23547 H CSF Glucose <20 L CSF Total Protein >600 H 06/21/16 06/21/16 06/21/16 00:42 04:44 06:10 WBC MCV MCHC Neutrophils # (Manual) Lymphocytes # (Manual) Monocytes # (Manual) ABG pH ABG pCO2 32 L ABG pO2 157 H ABG HCO3 20 L ABG O2 Saturation 99.0 H Chloride Carbon Dioxide Glucose POC Glucose (mg/dL) 116 H Calcium CK-MB (CK-2) 6.5 H* Troponin I 1.060 H* Total Protein Albumin CSF Tot Nucleated Cells CSF Glucose CSF Total Protein 06/21/16 06/21/16 06/21/16 06:40 06:40 06:40 WBC 20.5 H MCV 100.9 H MCHC 29.6 L Neutrophils # (Manual) 18.1 H Lymphocytes # (Manual) 0.9 L Monocytes # (Manual) 1.3 H ABG pH ABG pCO2 ABG pO2 ABG HCO3 ABG O2 Saturation Chloride 108 H Carbon Dioxide 21 L Glucose 114 H POC Glucose (mg/dL) Calcium 7.8 L CK-MB (CK-2) 6.3 H* Troponin I 1.150 H* Total Protein 5.4 L Albumin 2.6 L CSF Tot Nucleated Cells CSF Glucose CSF Total Protein - Diagnostic Findings Chest x-ray: image reviewed Assessment and Plan Plan: Impression 1 acute bacterial meningitis, a complication of a left otitis media/interna. The CSF evaluation is typical of an acute bacterial meningitis and the patient has gram-positive cocci and this most likely indicates an underlying streptococcal urine infection with secondary meningitis. Currently on a combination of Rocephin and vancomycin. 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 Surgery was done on 05/12/2016 5 fever secondary to above 6 leukocytosis secondary to above 7 acute respiratory failure. The patient is intubated for airway protection as the patient has significant impairment in level of consciousness. Currently intubated on a mechanical ventilator with adequate oxygenation and ventilation. Chest x-rays clear. 8 hypothyroidism 9 COPD 10 chronic eustachian tube dysfunction 11 actinic keratosis, history of 12 chronic hearing impairment 13 chronic mastoiditis 14 hyperlipidemia 15 suspected myasthenia gravis as the patient is taking Mestinon outpatient basis and this is to be further investigated Plan Continue vent support and drop the FiO2 down to 40% and no other vent changes for today. Continue current antibiotic coverage. Consult infectious disease. Consult ENT. Consult neurology. Continue IV fluid maintenance with normal state rate of 100 mL an hour. Initiate tube feeds. We'll resume this patient' s Synthroid orally at a dose of 175 g by mouth daily. We will investigate the rationale behind Mestinon treatment as I suspect that the patient probably was being treated for myasthenia gravis. We'll continue to follow. Sudheervocet is a concern of neurologic damage secondary to this meningitis. Will involve neurology on the case. We'll make further recommendations based on her progress. Condition is critical.
[2016-06-21] MEDS: IPRATROPIUM-ALBUTEROL 3 ML NEB INHALATION SCH ×4 (08:46→19:30)
[2016-06-21] MEDS ORDERED: cefTRIAXone 2,000 MG in SODIUM CHLORIDE 0.9% 100 ML IVPB SCH ×4 (09:00)
[2016-06-21 09:34] VITALS: BMI 27.5
[2016-06-21] MEDS: cefTRIAXone 2,000 MG in SODIUM CHLORIDE 0.9% 100 ML IVPB SCH ×2 (09:42→20:55)
[2016-06-21] MEDS: CHLORHEXIDINE GLUCONATE 15 ML CUP MUCOUS MEM SCH ×2 (09:46→20:55)
[2016-06-21] MEDS: ENOXAPARIN 40 MG/0.4 ML SYRINGE SQ SCH (09:46)
[2016-06-21] MEDS: LEVOTHYROXINE 100 MCG TAB PO SCH (09:52)
[2016-06-21] MEDS: LEVOTHYROXINE 75 MCG TAB PO SCH (09:52)
[2016-06-21] MEDS: SODIUM CHLORIDE 0.9% 1,000 ML IV SCH ×2 (10:00→20:54)
[2016-06-21] MEDS: FAMOTIDINE 20 MG/2 ML VIAL IV SCH ×2 (10:07→20:55)
--- NOTE | 2016-06-21 11:21 | P.CRDCN ---
History of Present Illness Consult date: 06/21/16 Chief complaint: Change in mental status History of present illness: This is an 80-year-old female patient with a past medical history significant for COPD, hypertension, and dyslipidemia, who was found by her son at home sitting in the kitchen unconscious The patient was brought to the emergency room here where she underwent a lumbar puncture which showed finding consistent with possible meningitis. Immediately the patient was intubated in the ER because of the change in mental status. Currently the patient is intubated and she is on ventilator. Hemodynamically she continues to be stable with mild sinus tachycardia. The reason we get involved in the care of the patient because she went into narrow complex tachycardia to me looks like SVT with possible atrial tachycardia. Currently the patient is in normal sinus mechanism and she is hemodynamically stable. I am going to start the patient on a small dose of beta renea. I will obtain an echocardiogram was Doppler. Please note that the patient is known to have thyroid disorder. 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, hypertension, impaired hearing, station tube dysfunction, chronic perforation of the tympanic membrane, hypothyroidism, GERD History of Any Multi-Drug Resistant Organisms: None Reported Past Surgical History: Adenoidectomy, Appendectomy, Cholecystectomy, Joint Replacement, Tonsillectomy, Tubal Ligation Additional Past Surgical History / Comment(s): Right total knee replacement, bilateral cataract surgery, D&C, benign growth removed from the right ear, recent surgery involving open reduction of the nasal bone fracture with fixation , septoplasty and closed reduction of a left maxillary fracture. Past Anesthesia/Blood Transfusion Reactions: No Reported Reaction Past Psychological History: No Psychological Hx Reported Smoking Status: Former smoker Past Alcohol Use History: None Reported Additional Past Alcohol Use History / Comment(s): QUIT SMOKING 1970 Past Drug Use History: None Reported - Past Family History Mother Family Medical History: No Reported History Medications and Allergies Home Medications Medication Instructions Recorded Confirmed Type Atenolol [Tenormin] 50 mg PO DAILY 05/03/16 06/20/16 History Folic Acid 1 mg PO DAILY 05/03/16 06/20/16 History Levothyroxine Sodium [Synthroid] 175 mcg PO DAILY 05/03/16 06/20/16 History Lisinopril-Hctz 10-12.5 mg 1 tab PO DAILY 05/03/16 06/20/16 History [Zestoretic 10-12.5] Pyridostigmine [place] [Mestinon] 60 mg PO TID 05/03/16 06/20/16 History amLODIPine [Norvasc] 5 mg PO DAILY 05/03/16 06/20/16 History HYDROcodone/APAP 5-325MG [[place] 1 tab PO BID PRN 05/12/16 06/20/16 History 5-325] Esomeprazole Magnesium [NexIUM] 40 mg PO DAILY 06/20/16 06/20/16 History Lovastatin [Mevacor] 20 mg PO HS 06/20/16 06/20/16 History Potassium Bicarbonate/Cit AC 25 meq PO DAILY 06/20/16 06/20/16 History [Potassium 25 Meq Tablet Eff] Allergies Allergy/AdvReac Type Severity Reaction Status Date / Time oxytetracycline Allergy Anaphylaxis Verified 06/20/16 18:14 [From Terramycin] polymyxin B Allergy Unknown Verified 06/20/16 18:45 Physical Exam Vitals: Vital Signs Temp Pulse Resp BP Pulse Ox 06/21/16 11:00 107 H 20 131/63 95 06/21/16 10:30 108 H 19 110/56 98 06/21/16 10:00 105 H 16 114/70 98 06/21/16 09:30 103 H 13 114/57 98 06/21/16 09:11 105 H 06/21/16 09:00 98.6 F 98 12 102/57 98 06/21/16 08:51 103 H 06/21/16 08:30 100 18 111/55 99 06/21/16 08:00 99 14 94/50 98 06/21/16 07:30 98 13 93/53 97 06/21/16 07:00 99 12 93/48 97 06/21/16 06:30 101 H 13 90/51 98 06/21/16 06:00 100 13 97/54 98 06/21/16 05:30 101 H 14 104/59 99 06/21/16 05:00 100 13 136/79 99 06/21/16 04:30 97.0 F L 111 H 12 145/80 98 06/21/16 04:00 106 H 20 137/77 98 06/21/16 03:30 105 H 19 124/73 99 06/21/16 03:00 102 H 21 116/78 98 06/21/16 02:30 104 H 22 120/73 98 06/21/16 02:00 111 H 17 110/69 98 06/21/16 01:30 100 20 98/62 98 06/21/16 01:00 98 18 96/64 99 06/21/16 00:30 99 20 98/62 99 06/21/16 00:00 101 H 17 97/59 98 06/20/16 23:30 103 H 18 103/63 98 06/20/16 23:00 97.8 F 109 H 18 154/87 97 06/20/16 22:04 97.0 F L 120 H 18 157/68 99 06/20/16 20:34 152 H 20 167/81 98 06/20/16 20:10 98.1 F 160 H 20 144/102 98 Intake and Output 06/20/16 06/21/16 06/21/16 22:59 06:59 14:59 Intake Total 850.0 500 Output Total 672 194 Balance 178.0 306 Intake: IV 850.0 500 Piperacillin-Tazobactam 3 50.0 .375 gm In Dextrose/Water 1 50ml.bag @ 12.5 mls/hr IVPB ONCE STA Rx#: [id number] Sodium Chloride 0.9% 1, 800 500 000 ml @ 100 mls/hr IV . Q10H STA Rx#:[id number] Output: Gastric Drainage 250 Urine 422 194 Other: Voiding Method Indwelling Catheter Indwelling Catheter Weight 77.4 kg 77.4 kg Patient Weight 06/22/16 06:59 Weight 77.4 kg ABP, PAP, CO, CI - Last 8 Hours Arterial Blood Pressure 141/62 Arterial Blood Pressure 118/54 Arterial Blood Pressure 111/49 Arterial Blood Pressure 106/51 Arterial Blood Pressure 111/50 Arterial Blood Pressure 108/51 Arterial Blood Pressure 94/46 Arterial Blood Pressure 91/44 Arterial Blood Pressure 96/49 Arterial Blood Pressure 99/47 Arterial Blood Pressure 98/44 - Constitutional General appearance: mild distress - Respiratory Respiratory: bilateral: CTA - Cardiovascular Rhythm: regular Heart sounds: normal: S1, S2 Results 06/21/16 06:40 06/21/16 06:40 Cardiac Enzymes 06/21/16 06/21/16 06/21/16 Range/Units 00:42 06:40 06:40 AST 22 (14-36) U/L CK-MB (CK-2) 6.5 H* 6.3 H* (0.0-2.4) ng/mL Troponin I 1.060 H* 1.150 H* (0.000-0.034) ng/mL CBC 06/21/16 Range/Units 06:40 WBC 20.5 H (3.8-10.6) k/uL RBC 4.00 (3.80-5.40) m/uL Hgb 11.9 (11.4-16.0) gm/dL Hct 40.3 (34.0-46.0) % Plt Count 160 (150-450) k/uL Comprehensive Metabolic Panel 06/21/16 Range/Units 06:40 Sodium 138 (137-145) mmol/L Potassium 3.6 (3.5-5.1) mmol/L Chloride 108 H (98-107) mmol/L Carbon Dioxide 21 L (22-30) mmol/L BUN 14 (7-17) mg/dL Creatinine 0.70 (0.52-1.04) mg/dL Glucose 114 H (74-99) mg/dL Calcium 7.8 L (8.4-10.2) mg/dL AST 22 (14-36) U/L ALT 27 (9-52) U/L Alkaline Phosphatase 71 (38-126) U/L Total Protein 5.4 L (6.3-8.2) g/dL Albumin 2.6 L (3.5-5.0) g/dL Current Medications Generic Name Dose Route Start Last Admin Trade Name Freq PRN Reason Stop Dose Admin Albuterol/Ipratropium 3 ml 06/21/16 08:00 06/21/16 08:46 Duoneb 0.5 Mg-3 Mg/3 Ml Soln INHALATION 3 ml RT-QID JARAD Administration Chlorhexidine Gluconate 15 ml 06/21/16 09:00 06/21/16 09:46 Peridex MUCOUS MEM 15 ml BID JARAD Administration Enoxaparin Sodium 40 mg 06/21/16 09:00 06/21/16 09:46 Lovenox SQ 40 mg DAILY JARAD Administration Famotidine 20 mg 06/20/16 21:00 06/21/16 10:07 Pepcid IV 20 mg Q12HR JARAD Administration Vancomycin HCl 1,500 mg/ 250 mls @ 125 mls/hr 06/21/16 12:00 Sodium Chloride IVPB Q16H JARAD Ceftriaxone Sodium 2,000 mg/ 100 mls @ 100 mls/hr 06/21/16 09:00 06/21/16 09: 42 Sodium Chloride IVPB 100 mls/hr Q12HR JARAD Administration Propofol 500 mg/ IV Solution 50 mls @ 0 mls/hr 06/21/16 00:30 IV .Q0M [facility] Protocol Titrate Levothyroxine Sodium 100 mcg 06/21/16 09:00 06/21/16 09:52 Synthroid PO 100 mcg DAILY@0630 JARAD Administration Levothyroxine Sodium 75 mcg 06/21/16 09:00 06/21/16 09:52 Synthroid PO 75 mcg DAILY@0630 JARAD Administration Lorazepam 1 mg 06/21/16 00:20 Ativan IV Q1HR PRN Mild Agitation Morphine Sulfate 4 mg 06/20/16 20:25 06/21/16 04:34 Morphine Sulfate (Inj) IV 4 mg Q4HR PRN Administration Pain Scale 8 to 10 Naloxone HCl 0.2 mg 06/20/16 20:25 Narcan IV Q2M PRN Opioid Reversal Pyridostigmine [place] 60 mg 06/21/16 09:00 06/21/16 09:52 Mestinon PO 60 mg TID JARAD Administration Intake and Output 06/20/16 06/21/16 06/21/16 22:59 06:59 14:59 Intake Total 850.0 500 Output Total 672 194 Balance 178.0 306 Intake: IV 850.0 500 Piperacillin-Tazobactam 3 50.0 .375 gm In Dextrose/Water 1 50ml.bag @ 12.5 mls/hr IVPB ONCE STA Rx#: [id number] Sodium Chloride 0.9% 1, 800 500 000 ml @ 100 mls/hr IV . Q10H STA Rx#:[id number] Output: Gastric Drainage 250 Urine 422 194 Other: Voiding Method Indwelling Catheter Indwelling Catheter Weight 77.4 kg 77.4 kg Patient Weight 01/11/17 06:59 Weight 77.4 kg 01/10/17 06:40 06/21/16 06:40 Assessment and Plan Plan: Assessment #1 change in mental status #2 acute respiratory failure #3 SVT #4 COPD #5 multiple comorbid conditions Plan #1 start the patient on beta renea with metoprolol #2 obtain an echocardiogram was Doppler #3 follow-up with the patient
[2016-06-21] MEDS: PROPOFOL 500 MG in EMPTY BAG 1 BAG IV SCH ×3 (12:37→19:43)
--- NOTE | 2016-06-21 14:19 | HP ---
DATE OF ADMISSION: Patient is an 80-year-old female who was transferred from [facility] after she got intubated and patient was found confused at home in the bathroom. Patient's family was concerned that whenever patient talks, it does not make sense and patient was brought into [facility] where patient became unresponsive. Patient was intubated, although we did not know what the exact symptoms patient had, it appears like patient had quite a bit of confusion, beyond that, appears to have no other significant symptoms although patient was febrile here with leukocytosis and patient's chest x-ray was essentially within normal limits and UA was not impressive. Patient underwent a lumbar puncture which did show bacterial meningitis with highly elevated WBC count, low glucose, high protein, and gram-positive cocci. Most gram-positive cocci in the CSF, most probably pneumococcal and patient was started on 2 gm of Rocephin and vancomycin and patient was also given Zosyn because of her age, although now we know it is gram-positive cocci, Zosyn was discontinued and patient is presently intubated, receiving 20 mcg of propofol. Patient later went into atrial fibrillation. Patient has elevated troponins secondary to sepsis and demand ischemia supplementing demand mismatch and patient is on Cardizem drip as well and Cardiology evaluated the patient and echocardiogram is being obtained. The patient meningitis is probably because of her infections. CT of the head did show some severe mastoiditis, may even have acute on chronic mastoiditis. There was pansinusitis and complete opacification of the middle ear on the left side. Patient was apparently having these severe symptoms of ear infection, which may have contiguously spread to the brain. There was purulent drainage and CSF. The rest of the history is not very clear as family present does not know her history that much, although patient is not retaining any fluid in the lungs and patient is getting ( ) of fluids and her blood pressure is stable because of which we are going to go ahead and continue that. Patient may need more fluid than that. Depending on the echocardiogram, will go ahead and increase the fluid, but as of now, she is hemodynamically stable on ventilator, because of which I am going to leave the fluids at that rate. Patient had an SVT and then went into atrial fibrillation with rapid ventricular rate. 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 SOCIAL HISTORY: Former smoker, quit smoking in 1977, denied any alcohol abuse or any drug abuse. Family history is unknown at this point of time. Home medications include: 1. Atenolol. 2. Levothyroxine. 3. Lisinopril-hydrochlorothiazide. 4. Pyridostigmine. 5. Amlodipine. 6. Hydrocodone, 7. Acetaminophen. 8. Omeprazole. 9. Lovastatin. The patient appears to have a bit of mild dementia as per the family. Son is present at the bedside when I evaluated the patient as well as other family members. ALLERGIES: Allergic to OXYTETRACYCLINE, POLYMYXIN B. PHYSICAL EXAMINATION: Temperature 97.0, pulse of 99, respiratory rate of 14. Blood pressure now is around 133/63, saturating at 98% on ventilator. Please refer to Dr. Pete's dictation for further details of vent settings and patient has a VASC score of -2 and patient is on 20 mcg of propofol, which will try to cut down more if possible to maintain VASC score between -1 and -2. GENERAL: The patient is intubated, sedated, calm. NEUROLOGICAL: He is moving limbs on and off and VASC score as mentioned above. HEENT: Pupils are round and equally reacting to light. EOMI. No scleral icterus. No conjunctival pallor. Normocephalic, atraumatic. No pharyngeal erythema. No thyromegaly. CARDIOVASCULAR: S1 and S2 present. No murmurs, rubs, or gallops. PULMONARY: Chest is clear to auscultation, no wheezing or crackles. ABDOMEN: Soft, nontender, nondistended, normoactive bowel sounds. No palpable organomegaly. MUSCULOSKELETAL: No joint swelling or deformity. EXTREMITIES: No cyanosis, clubbing, or pedal edema. SKIN: No rashes. LABORATORY DATA: CBC, CMP are abnormal for leukocytosis of 13,000, which has gone up to 20,500. ABGs were reviewed. No significant abnormality on present vent settings. No acidosis on present vent settings. Patient was probably acidotic at the other hospital. Anion gap is 9 now, bicarbonate is 21. The rest of the electrolytes, no significant abnormality. Troponin first one is 0.341, second one is 1.150 and now is 1.060 which I believe is secondary to sepsis. Urine showed ( ) WBC, large blood, and 1+ protein, CSF nucleated cells 16,500, less than 20 glucose, greater than 600 total protein, all of which are consistent with bacterial meningitis. ASSESSMENT AND PLAN: 1. Severe sepsis secondary to acute bacterial meningitis with respiratory failure secondary to severe sepsis. Patient is intubated and sedated at this point of time. Patient is on vancomycin and Rocephin 2 gm. 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 2. Toxic encephalopathy from sepsis. 3. Type 2 [id number] myocardial infarction secondary to severe sepsis. 4. Atrial fibrillation frustrated by sepsis and meningitis. 5. Leukocytosis secondary to sepsis. 6. Hypothyroidism. 7. Chronic obstructive pulmonary disease without any acute exacerbation. 8. Hyperlipidemia. 9. Hypertension but hold off on any hypotensives at this point of time. Spent about 45 minutes of ( ) time in managing the patient.
[2016-06-21] MEDS: VANCOMYCIN 1,500 MG in SODIUM CHLORIDE 0.9% 250 ML IVPB SCH (14:30)
--- NOTE | 2016-06-21 17:49 | P.GSCN ---
History of Present Illness Consult date: 06/21/16 Reason for Consult: Meningitis, left-sided otorrhea Requesting physician: Arpit Jaime History of present illness: This is an 80-year-old white female known to myself who developed some left- sided otorrhea and then most recently went to [facility] where she was found have meningitis transferred here. She was intubated and is down the intensive care unit on the vent with diagnosis of meningitis that she had a positive spinal tap. Prior to this meningitis she had some otorrhea from the left ear. She has been seen at the [facility] for several years for chronic ear disease and mastoiditis. The exact treatment from the [facility] is not known to myself. She most recently had a facial fracture and had a repair in May. She has healed well from that fall. Currently she is intubated and is not communicative because of the intubation. The history is from the chart and from the nursing staff. 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, hypertension, impaired hearing, station tube dysfunction, chronic perforation of the tympanic membrane, hypothyroidism, GERD History of Any Multi-Drug Resistant Organisms: None Reported Past Surgical History: Adenoidectomy, Appendectomy, Cholecystectomy, Joint Replacement, Tonsillectomy, Tubal Ligation Additional Past Surgical History / Comment(s): Right total knee replacement, bilateral cataract surgery, D&C, benign growth removed from the right ear, recent surgery involving open reduction of the nasal bone fracture with fixation , septoplasty and closed reduction of a left maxillary fracture. Past Anesthesia/Blood Transfusion Reactions: No Reported Reaction Past Psychological History: No Psychological Hx Reported Smoking Status: Former smoker Past Alcohol Use History: None Reported Additional Past Alcohol Use History / Comment(s): QUIT SMOKING 1970 Past Drug Use History: None Reported - Past Family History Mother Family Medical History: No Reported History Medications and Allergies Home Medications Medication Instructions Recorded Confirmed Type Atenolol [Tenormin] 50 mg PO DAILY 05/03/16 06/20/16 History Folic Acid 1 mg PO DAILY 05/03/16 06/20/16 History Levothyroxine Sodium [Synthroid] 175 mcg PO DAILY 05/03/16 06/20/16 History Lisinopril-Hctz 10-12.5 mg 1 tab PO DAILY 05/03/16 06/20/16 History [Zestoretic 10-12.5] Pyridostigmine [place] [Mestinon] 60 mg PO TID 05/03/16 06/20/16 History amLODIPine [Norvasc] 5 mg PO DAILY 05/03/16 06/20/16 History HYDROcodone/APAP 5-325MG [[place] 1 tab PO BID PRN 05/12/16 06/20/16 History 5-325] Esomeprazole Magnesium [NexIUM] 40 mg PO DAILY 06/20/16 06/20/16 History Lovastatin [Mevacor] 20 mg PO HS 06/20/16 06/20/16 History Potassium Bicarbonate/Cit AC 25 meq PO DAILY 06/20/16 06/20/16 History [Potassium 25 Meq Tablet Eff] Allergies Allergy/AdvReac Type Severity Reaction Status Date / Time oxytetracycline Allergy Anaphylaxis Verified 06/20/16 18:14 [From Terramycin] polymyxin B Allergy Unknown Verified 06/20/16 18:45 Surgical - Exam Osteopathic Statement: *. No significant issues noted on an osteopathic structural exam other than those noted in the History and Physical/Consult. Vital Signs Temp Pulse Resp BP Pulse Ox 98.4 F 120 H 20 177/91 99 06/20/16 18:15 06/20/16 18:15 06/20/16 18:15 06/20/16 18:15 06/20/16 18:15 - General Nonresponsive well developed, well nourished - Eyes pupils show normal reflexes - ENT Head is normocephalic the face is symmetric patient is obtunded and is currently on a ventilator. The auricles are well formed there is some purulence seen in the left ear canal I'm unable to see the eardrum and do not have section available with a otologic suction dictating this ear canal. The right is unremarkable nose is patent mouth and throat no oral lesions are noted endotracheal tube is noted neck no tumors masses are palpable. normal pinna, normal nares - Neck no masses, no bruits - Neurologic Obtunded on a ventilator - Psychiatric Unable to cooperate Results - Labs 06/21/16 06:40 06/21/16 06:40 Abnormal Lab Results - Last 24 Hours (Table) 06/20/16 06/20/16 06/20/16 Range/Units 20:05 22:42 23:03 WBC (3.8-10.6) k/uL MCV (80.0-100.0) fL MCHC (31.0-37.0) g/dL Neutrophils # (Manual) (1.3-7.7) k/uL Lymphocytes # (Manual) (1.0-4.8) k/uL Monocytes # (Manual) (0-1.0) k/uL ABG pH 7.32 L (7.35-7.45) ABG pCO2 (35-45) mmHg ABG pO2 109 H (83-108) mmHg ABG HCO3 19 L (21-25) mmol/L ABG O2 Saturation 98.0 H (94-97) % Chloride (98-107) mmol/L Carbon Dioxide (22-30) mmol/L Glucose (74-99) mg/dL POC Glucose (mg/dL) 197 H (75-99) mg/dL Calcium (8.4-10.2) mg/dL CK-MB (CK-2) (0.0-2.4) ng/mL Troponin I (0.000-0.034) ng/mL Total Protein (6.3-8.2) g/dL Albumin (3.5-5.0) g/dL CSF Tot Nucleated Cells 08001 H (0-5) u/L CSF Glucose <20 L (40-70) mg/dL CSF Total Protein >600 H (12-60) mg/dL 06/21/16 06/21/16 06/21/16 Range/Units 00:42 04:44 06:10 WBC (3.8-10.6) k/uL MCV (80.0-100.0) fL MCHC (31.0-37.0) g/dL Neutrophils # (Manual) (1.3-7.7) k/uL Lymphocytes # (Manual) (1.0-4.8) k/uL Monocytes # (Manual) (0-1.0) k/uL ABG pH (7.35-7.45) ABG pCO2 32 L (35-45) mmHg ABG pO2 157 H (83-108) mmHg ABG HCO3 20 L (21-25) mmol/L ABG O2 Saturation 99.0 H (94-97) % Chloride (98-107) mmol/L Carbon Dioxide (22-30) mmol/L Glucose (74-99) mg/dL POC Glucose (mg/dL) 116 H (75-99) mg/dL Calcium (8.4-10.2) mg/dL CK-MB (CK-2) 6.5 H* (0.0-2.4) ng/mL Troponin I 1.060 H* (0.000-0.034) ng/mL Total Protein (6.3-8.2) g/dL Albumin (3.5-5.0) g/dL CSF Tot Nucleated Cells (0-5) u/L CSF Glucose (40-70) mg/dL CSF Total Protein (12-60) mg/dL 06/21/16 06/21/16 06/21/16 Range/Units 06:40 06:40 06:40 WBC 20.5 H (3.8-10.6) k/uL MCV 100.9 H (80.0-100.0) fL MCHC 29.6 L (31.0-37.0) g/dL Neutrophils # (Manual) 18.1 H (1.3-7.7) k/uL Lymphocytes # (Manual) 0.9 L (1.0-4.8) k/uL Monocytes # (Manual) 1.3 H (0-1.0) k/uL ABG pH (7.35-7.45) ABG pCO2 (35-45) mmHg ABG pO2 (83-108) mmHg ABG HCO3 (21-25) mmol/L ABG O2 Saturation (94-97) % Chloride 108 H (98-107) mmol/L Carbon Dioxide 21 L (22-30) mmol/L Glucose 114 H (74-99) mg/dL POC Glucose (mg/dL) (75-99) mg/dL Calcium 7.8 L (8.4-10.2) mg/dL CK-MB (CK-2) 6.3 H* (0.0-2.4) ng/mL Troponin I 1.150 H* (0.000-0.034) ng/mL Total Protein 5.4 L (6.3-8.2) g/dL Albumin 2.6 L (3.5-5.0) g/dL CSF Tot Nucleated Cells (0-5) u/L CSF Glucose (40-70) mg/dL CSF Total Protein (12-60) mg/dL Microbiology - Last 24 Hours (Table) 06/20/16 20:05 CSF Gram Stain - Preliminary Cerebral Spinal Fluid Diabetes panel 06/21/16 Range/Units 06:40 Sodium 138 (137-145) mmol/L Potassium 3.6 (3.5-5.1) mmol/L Chloride 108 H (98-107) mmol/L Carbon Dioxide 21 L (22-30) mmol/L BUN 14 (7-17) mg/dL Creatinine 0.70 (0.52-1.04) mg/dL Glucose 114 H (74-99) mg/dL Calcium 7.8 L (8.4-10.2) mg/dL AST 22 (14-36) U/L ALT 27 (9-52) U/L Alkaline Phosphatase 71 (38-126) U/L Total Protein 5.4 L (6.3-8.2) g/dL Albumin 2.6 L (3.5-5.0) g/dL Calcium panel 06/21/16 Range/Units 06:40 Calcium 7.8 L (8.4-10.2) mg/dL Phosphorus 3.3 (2.5-4.5) mg/dL Albumin 2.6 L (3.5-5.0) g/dL Pituitary panel 06/21/16 Range/Units 06:40 Sodium 138 (137-145) mmol/L Potassium 3.6 (3.5-5.1) mmol/L Chloride 108 H (98-107) mmol/L Carbon Dioxide 21 L (22-30) mmol/L BUN 14 (7-17) mg/dL Creatinine 0.70 (0.52-1.04) mg/dL Glucose 114 H (74-99) mg/dL Calcium 7.8 L (8.4-10.2) mg/dL Adrenal panel 06/21/16 Range/Units 06:40 Sodium 138 (137-145) mmol/L Potassium 3.6 (3.5-5.1) mmol/L Chloride 108 H (98-107) mmol/L Carbon Dioxide 21 L (22-30) mmol/L BUN 14 (7-17) mg/dL Creatinine 0.70 (0.52-1.04) mg/dL Glucose 114 H (74-99) mg/dL Calcium 7.8 L (8.4-10.2) mg/dL Total Bilirubin 0.3 (0.2-1.3) mg/dL AST 22 (14-36) U/L ALT 27 (9-52) U/L Alkaline Phosphatase 71 (38-126) U/L Total Protein 5.4 L (6.3-8.2) g/dL Albumin 2.6 L (3.5-5.0) g/dL Assessment and Plan (1) Chronic mastoiditis of left side Narrative/Plan: This patient's meningitis most likely is otogenic from the left ear. She has active otorrhea and has had a history of otorrhea over the last week. Continue medical treatment of course is indicated. Her condition is guarded. I'm recommending that we suction the left ear canal clean the canal and examine the canal under a microscope. The patient may benefit from a left myringotomy and tympanostomy tube placement. I will see this patient tomorrow afternoon after she is more stable with antibiotic therapy and will clean her ear and if necessary insert a tube. I anticipate that there is probably some type of perforation present that she's getting some otorrhea. I will no more after she undergoes a microscopic examination. Status: Acute (2) Acute otitis media of left ear with perforated tympanic membrane Status: Acute (3) Otitis media Status: Acute
--- NOTE | 2016-06-21 18:57 | P.CNNES ---
History of Present Illness Consult date: 06/21/16 Reason for Consult: This patient is admitted with acute bacterial meningitis. History of Present Illness: This patient is a 80-year-old right-handed white female who initially presented to [facility] with symptoms of fever and altered mental status. Apparently she was very confused at home and her son immediately brought her to the ER at [facility]. Apparently several attempts to perform a lumbar puncture failed. She was then transferred by ambulance to [facility] for further evaluation. In the ER she continued to show signs of a 10 day patient and lethargy. She did undergo a lumbar puncture in the ER which was consistent with acute bacterial meningitis. She was intubated and transferred into the intensive care unit. Spinal fluid analysis reveals gram- positive cocci. She does have a rather extensive history of left-sided otitis media. She has had otorrhea from the left ear apparently off-and-on for the last week or 2. In May she did undergo facial bone fracture repair and apparently showed some improvement. She has a history of chronic mastoiditis. ENT has seen the patient and it is felt that she does have otogenic meningitis likely arising from the left ear. The patient has been followed at the [facility] for several years with history of chronic ear disease and mastoiditis. The patient did undergo a computed tomography scan of the internal auditory canals. This CAT scan revealed evidence of otitis externa and internal on the left side. There was otosclerosis of the left mastoid sinus consistent with chronic mastoiditis. There is also questionable cholesteatoma in the left middle ear. The patient has remained intubated and remains very lethargic. She does arouse to painful stimuli. She was started on a combination of vancomycin and Rocephin which she continues on at this time in the ICU. Infectious disease has been consult did for further evaluation and management. We have recommended a computed tomography scan of the brain to be done today for further assessment. Review of her current medications indicates she has been taking Mestinon 60 mg 3 times a day for probable underlying diagnosis of myasthenia gravis. This has not been documented in her previous past medical history. The patient continues on Mestinon at this time. She is on low dose Diprivan at this time as per the recommendations of pulmonary medicine. We're awaiting further input from the patient's son who was unavailable for update on her past medical history specifically myasthenia gravis. At this time the patient remains in the intensive care unit. Her condition remains critical at this time. She is to continue with current antibiotics as recommended by infectious disease. Neurology is now been consulted for further evaluation and recommendations. Review of Systems Constitutional: Denies chills, Denies fever Eyes: denies blurred vision, denies pain Ears, nose, mouth and throat: Denies headache, Denies sore throat Cardiovascular: Denies chest pain, Denies shortness of breath Respiratory: Denies cough Gastrointestinal: Denies abdominal pain, Denies diarrhea, Denies nausea, Denies vomiting Genitourinary: Denies dysuria, Denies hematuria Musculoskeletal: Denies myalgias Integumentary: Denies pruritus, Denies rash Neurological: Reports change in mentation, Reports confusion, Denies numbness, Denies weakness Psychiatric: Denies anxiety, Denies depression Endocrine: Denies fatigue, Denies weight change 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, hypertension, impaired hearing, station tube dysfunction, chronic perforation of the tympanic membrane, hypothyroidism, GERD History of Any Multi-Drug Resistant Organisms: None Reported Past Surgical History: Adenoidectomy, Appendectomy, Cholecystectomy, Joint Replacement, Tonsillectomy, Tubal Ligation Additional Past Surgical History / Comment(s): Right total knee replacement, bilateral cataract surgery, D&C, benign growth removed from the right ear, recent surgery involving open reduction of the nasal bone fracture with fixation , septoplasty and closed reduction of a left maxillary fracture. Past Anesthesia/Blood Transfusion Reactions: No Reported Reaction Past Psychological History: No Psychological Hx Reported Smoking Status: Former smoker Past Alcohol Use History: None Reported Additional Past Alcohol Use History / Comment(s): QUIT SMOKING 1970 Past Drug Use History: None Reported - Past Family History Mother Family Medical History: No Reported History Medications and Allergies Home Medications Medication Instructions Recorded Confirmed Type Atenolol [Tenormin] 50 mg PO DAILY 05/03/16 06/20/16 History Folic Acid 1 mg PO DAILY 05/03/16 06/20/16 History Levothyroxine Sodium [Synthroid] 175 mcg PO DAILY 05/03/16 06/20/16 History Lisinopril-Hctz 10-12.5 mg 1 tab PO DAILY 05/03/16 06/20/16 History [Zestoretic 10-12.5] Pyridostigmine [place] [Mestinon] 60 mg PO TID 05/03/16 06/20/16 History amLODIPine [Norvasc] 5 mg PO DAILY 05/03/16 06/20/16 History HYDROcodone/APAP 5-325MG [[place] 1 tab PO BID PRN 05/12/16 06/20/16 History 5-325] Esomeprazole Magnesium [NexIUM] 40 mg PO DAILY 06/20/16 06/20/16 History Lovastatin [Mevacor] 20 mg PO HS 06/20/16 06/20/16 History Potassium Bicarbonate/Cit AC 25 meq PO DAILY 06/20/16 06/20/16 History [Potassium 25 Meq Tablet Eff] Allergies Allergy/AdvReac Type Severity Reaction Status Date / Time oxytetracycline Allergy Anaphylaxis Verified 06/20/16 18:14 [From Terramycin] polymyxin B Allergy Unknown Verified 06/20/16 18:45 Physical Examination - Vital Signs Vital Signs: Vital Signs Temp Pulse Resp BP Pulse Ox 06/21/16 16:02 107 H 06/21/16 16:00 99.3 F 108 H 17 107/60 06/21/16 15:39 107 H 06/21/16 15:00 106 H 15 106/56 99 06/21/16 14:00 100 12 113/59 99 06/21/16 13:20 99 06/21/16 13:03 102 H 06/21/16 13:00 106 H 15 107/54 98 06/21/16 12:00 104 H 19 133/63 99 06/21/16 11:31 20 06/21/16 11:00 107 H 20 131/63 95 06/21/16 10:30 108 H 19 110/56 98 06/21/16 10:00 105 H 16 114/70 98 06/21/16 09:30 103 H 13 114/57 98 06/21/16 09:11 105 H 06/21/16 09:00 98.6 F 98 12 102/57 98 06/21/16 08:51 103 H 01/10/17 08:30 100 18 111/55 99 06/21/16 08:00 99 14 94/50 98 06/21/16 07:30 98 13 93/53 97 06/21/16 07:00 99 12 93/48 97 06/21/16 06:30 101 H 13 90/51 98 06/21/16 06:00 100 13 97/54 98 06/21/16 05:30 101 H 14 104/59 99 06/21/16 05:00 100 13 136/79 99 06/21/16 04:30 97.0 F L 111 H 12 145/80 98 06/21/16 04:00 106 H 20 137/77 98 06/21/16 03:30 105 H 19 124/73 99 06/21/16 03:00 102 H 21 116/78 98 06/21/16 02:30 104 H 22 120/73 98 06/21/16 02:00 111 H 17 110/69 98 06/21/16 01:30 100 20 98/62 98 06/21/16 01:00 98 18 96/64 99 06/21/16 00:30 99 20 98/62 99 06/21/16 00:00 101 H 17 97/59 98 06/20/16 23:30 103 H 18 103/63 98 06/20/16 23:00 97.8 F 109 H 18 154/87 97 06/20/16 22:04 97.0 F L 120 H 18 157/68 99 06/20/16 20:34 152 H 20 167/81 98 06/20/16 20:10 98.1 F 160 H 20 144/102 98 Intake and Output 06/21/16 06/21/16 06/21/16 06:59 14:59 22:59 Intake Total 850.0 800 379.68 Output Total 672 286 55 Balance 178.0 514 324.68 Intake: IV 850.0 800 200 Piperacillin-Tazobactam 3 50.0 .375 gm In Dextrose/Water 1 50ml.bag @ 12.5 mls/hr IVPB ONCE STA Rx#: [id number] Sodium Chloride 0.9% 1, 800 800 200 000 ml @ 100 mls/hr IV . Q10H [facility] Rx#:[id number] Intake, IV Titration 179.68 Amount Propofol 500 mg In Empty 54.68 Bag 1 bag @ Titrate IV . Q0M [facility] Rx#:[id number] Vancomycin 1,500 mg In 125 Sodium Chloride 0.9% 250 ml @ 125 mls/hr IVPB Q16H [facility] Rx#:[id number] Output: Gastric Drainage 250 Urine 422 286 55 Other: Voiding Method Indwelling Catheter Indwelling Catheter Indwelling Catheter Weight 77.4 kg 77.4 kg Patient Weight 06/22/16 06:59 Weight 77.4 kg ABP, PAP, CO, CI - Last 8 Hours Arterial Blood Pressure 135/50 Arterial Blood Pressure 125/56 Arterial Blood Pressure 123/50 Arterial Blood Pressure 139/57 Arterial Blood Pressure 114/53 Arterial Blood Pressure 141/62 Arterial Blood Pressure 118/54 Arterial Blood Pressure 111/49 Arterial Blood Pressure 106/51 - Constitutional General appearance: average body habitus - EENT EENT: mucous membranes moist - Respiratory Respiratory: lungs clear - Cardiovascular Cardiovascular: regular rate, normal S1, normal S2 Extremities: no peripheral edema bilaterally - Gastrointestinal Gastrointestinal: normoactive bowel sounds - Integumentary Integumentary: normal - Neurologic Cranial nerve examination: PERRL, EOMI, VFF, V1/V2/V3 grossly intact, face symmetric, tongue midline, intact gag reflex, intact corneal reflex, normal palatal elevation Speech examination: intact Sensorimotor examination: intact Motor examination - right side: 3/5: biceps, triceps, wrist flexion, wrist extension, information systems auditor, hip flexors, knee extensors, dorsiflexion, toe extension (EHL) , plantarflexion Motor examination - left side: 3/5: biceps, triceps, wrist flexion, wrist extension, information systems auditor, hip flexors, knee extensors, dorsiflexion, toe extension (EHL) , plantarflexion Detailed sensory examination: intact Reflex and gait examination: intact Reflexes: 1+: ankle, bicep, knee, tricep - Musculoskeletal Musculoskeletal: no pain Results - Laboratory Findings CBC and BMP: 06/21/16 06:40 06/21/16 06:40 Abnormal Lab Findings: Abnormal Labs 06/20/16 06/20/16 06/20/16 20:05 22:42 23:03 WBC MCV MCHC Neutrophils # (Manual) Lymphocytes # (Manual) Monocytes # (Manual) ABG pH 7.32 L ABG pCO2 ABG pO2 109 H ABG HCO3 19 L ABG O2 Saturation 98.0 H Chloride Carbon Dioxide Glucose POC Glucose (mg/dL) 197 H Calcium CK-MB (CK-2) Troponin I Total Protein Albumin CSF Tot Nucleated Cells 04393 H CSF Glucose <20 L CSF Total Protein >600 H 06/21/16 06/21/16 06/21/16 00:42 04:44 06:10 WBC MCV MCHC Neutrophils # (Manual) Lymphocytes # (Manual) Monocytes # (Manual) ABG pH ABG pCO2 32 L ABG pO2 157 H ABG HCO3 20 L ABG O2 Saturation 99.0 H Chloride Carbon Dioxide Glucose POC Glucose (mg/dL) 116 H Calcium CK-MB (CK-2) 6.5 H* Troponin I 1.060 H* Total Protein Albumin CSF Tot Nucleated Cells CSF Glucose CSF Total Protein 06/21/16 06/21/16 06/21/16 06:40 06:40 06:40 WBC 20.5 H MCV 100.9 H MCHC 29.6 L Neutrophils # (Manual) 18.1 H Lymphocytes # (Manual) 0.9 L Monocytes # (Manual) 1.3 H ABG pH ABG pCO2 ABG pO2 ABG HCO3 ABG O2 Saturation Chloride 108 H Carbon Dioxide 21 L Glucose 114 H POC Glucose (mg/dL) Calcium 7.8 L CK-MB (CK-2) 6.3 H* Troponin I 1.150 H* Total Protein 5.4 L Albumin 2.6 L CSF Tot Nucleated Cells CSF Glucose CSF Total Protein Assessment and Plan (1) Acute bacterial meningitis Status: Acute Code(s): G00.9 - BACTERIAL MENINGITIS, UNSPECIFIED (2) Acute encephalopathy Status: Acute Code(s): G93.40 - ENCEPHALOPATHY, UNSPECIFIED (3) Acute otitis media of left ear with perforated tympanic membrane Status: Acute Code(s): H66.92 - OTITIS MEDIA, UNSPECIFIED, LEFT EAR; H72.92 - UNSPECIFIED PERFORATION OF TYMPANIC MEMBRANE, LEFT EAR (4) Otitis media Status: Acute Code(s): H66.90 - OTITIS MEDIA, UNSPECIFIED, UNSPECIFIED EAR (5) SIRS (systemic inflammatory response syndrome) Status: Acute Code(s): R65.10 - SIRS OF NON-INFECTIOUS ORIGIN W/O ACUTE ORGAN DYSFUNCTION Plan: This patient is a 80-year-old right-handed white female who was initially taken to [facility] for evaluation of altered mental status. She appeared to have high-grade fever and several attempts were made to perform lumbar puncture. This was unsuccessful. She was intubated and transferred to [facility] for further evaluation. In the ER she underwent a successful lumbar puncture. Spinal fluid analysis revealed evidence of acute bacterial meningitis. She was intubated and transferred to the intensive care unit. The patient has a history of having had persistent otorrhea from the left ear. She was seen by ENT today and does have left-sided otorrhea and probable otogenic cause of her meningitis from the left ear. She was started on vancomycin and Rocephin and is being evaluated by infectious disease. The patient also has a history of probable myasthenia gravis. She has been taking Mestinon in the outpatient setting. She remains intubated on the ventilator and obtunded at this time. Her current temperature is 99.3. We will have her continue her current ICU treatment plans as per the multiple specialists seeing her. We will obtain a routine CAT scan of the brain today for further evaluation of her acute meningitis. We will await further recommendations from infectious disease. She is to continue with droplet isolation precautions. Given her age and multiple complex medical issues her overall prognosis at this time remains very guarded. The patient will be reevaluated tomorrow by ENT for possible left-sided myringotomy and tympanoplasty tube placement. She is to continue with her current antibiotics. We will have her maintained on Mestinon at this time until further information can be obtained from the family regarding her myasthenia gravis. Her overall prognosis at this time remains very guarded. We will continue close neurological follow this patient in the intensive care unit. Time with Patient: Greater than 30
[2016-06-21] MEDS ORDERED: SODIUM CHLORIDE 0.9% 1,000 ML IV ONE (18:58)
[2016-06-21] MEDS ORDERED: SODIUM CHLORIDE 0.9% 500 ML IV ONE ×2 (19:01→19:03)
[2016-06-21 19:12] LABS: Glucose,Whole Blood 88 mg/dL (75-99)
[2016-06-21 19:12] LABS: Glucose,Whole Blood 64 mg/dL (75-99)
--- NOTE | 2016-06-21 19:31 | P.CONS ---
History of Present Illness - Reason for Consult Consult date: 06/21/16 - Chief Complaint fever altered mental status - History of Present Illness 80 year old woman who presents to the emergency center because of difficulty with fever and altered mental status. Initially that she has a known history of difficulties with her ears or she's followed with the [place] [facility] into as well as local ENT. 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 In May she suffered a fall in her bathroom resulting in a facial fracture and a nasal fracture. She underwent surgical repair of these was doing relatively well. She over the day before this admission presented emergency center with some otorrhea from her left ear. She is treated with antibiotic therapy oral and topical. Despite this she rapidly deteriorated and presented to her local emergency center. And because of her altered mental status was transferred to our facility. She required intubation with sedation mechanical ventilation. Because of her altered mental status and fever of her puncture was performed which is markedly abnormal. It with at the infectious diseases consultation was requested. I did talk to the emergency room physician. Antibiotic therapy was clarified as vancomycin and Rocephin 2 g IV piggyback every 12 hours. A computed tomography scan had been performed and there was no evidence of any brain abscess. 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, hypertension, impaired hearing, station tube dysfunction, chronic perforation of the tympanic membrane, hypothyroidism, GERD History of Any Multi-Drug Resistant Organisms: None Reported Past Surgical History: Adenoidectomy, Appendectomy, Cholecystectomy, Joint Replacement, Tonsillectomy, Tubal Ligation Additional Past Surgical History / Comment(s): Right total knee replacement, bilateral cataract surgery, D&C, benign growth removed from the right ear, recent surgery involving open reduction of the nasal bone fracture with fixation , septoplasty and closed reduction of a left maxillary fracture. Past Anesthesia/Blood Transfusion Reactions: No Reported Reaction Past Psychological History: No Psychological Hx Reported Smoking Status: Former smoker Past Alcohol Use History: None Reported Additional Past Alcohol Use History / Comment(s): QUIT SMOKING 1970 Past Drug Use History: None Reported - Past Family History Mother Family Medical History: No Reported History Medications and Allergies Home Medications and Allergies Comment(s): Current Medications Albuterol/Ipratropium (Duoneb 0.5 Mg-3 Mg/3 Ml Soln) 3 ml INHALATION RT-QID [facility] Last Admin: 06/21/16 15:35 Dose: 3 ml Chlorhexidine Gluconate (Peridex) 15 ml MUCOUS MEM BID [facility] Last Admin: 06/21/16 09:46 Dose: 15 ml Ciprofloxacin/Dexamethasone (Ciprodex Otic Susp) 4 drops LEFT EAR TID [facility] Enoxaparin Sodium (Lovenox) 40 mg SQ DAILY [facility] Last Admin: 06/21/16 09:46 Dose: 40 mg Famotidine (Pepcid) 20 mg IV Q12HR [facility] Last Admin: 06/21/16 10:07 Dose: 20 mg Vancomycin HCl 1,500 mg/ (Sodium Chloride) 250 mls @ 125 mls/hr IVPB Q16H [facility] Last Admin: 06/21/16 14:30 Dose: 125 mls/hr Ceftriaxone Sodium 2,000 mg/ (Sodium Chloride) 100 mls @ 100 mls/hr IVPB Q12HR [facility] Last Admin: 06/21/16 09:42 Dose: 100 mls/hr Propofol 500 mg/ IV Solution 50 mls @ 0 mls/hr IV .Q0M [facility]; Titrate PRN Reason: Protocol Last Titration: 06/21/16 17:00 Dose: 25 mcg/kg/min, 11.7 mls/hr Sodium Chloride (Saline 0.9%) 1,000 mls @ 100 mls/hr IV .Q10H [facility] Last Admin: 06/21/16 10:00 Dose: 100 mls/hr Sodium Chloride (Saline 0.9%) 500 mls @ 999 mls/hr IV .Q31M ONE Stop: 06/21/16 19:31 Levothyroxine Sodium (Synthroid) 100 mcg PO DAILY@0630 [facility] Last Admin: 06/21/16 09:52 Dose: 100 mcg Levothyroxine Sodium (Synthroid) 75 mcg PO DAILY@0630 [facility] Last Admin: 06/21/16 09:52 Dose: 75 mcg Lorazepam (Ativan) 1 mg IV Q1HR PRN PRN Reason: Mild Agitation Metoprolol Tartrate (Lopressor) 12.5 mg PO BID [facility] Morphine Sulfate (Morphine Sulfate (Inj)) 4 mg IV Q4HR PRN PRN Reason: Pain Scale 8 to 10 Last Admin: 06/21/16 17:48 Dose: 4 mg Naloxone HCl (Narcan) 0.2 mg IV Q2M PRN PRN Reason: Opioid Reversal Pyridostigmine [place] ([place]est[place]on) 60 mg PO TID [facility] Last Admin: 06/21/16 15:51 Dose: 60 mg Home Medications Medication Instructions Recorded Confirmed Type Atenolol [Tenormin] 50 mg PO DAILY 05/03/16 06/20/16 History Folic Acid 1 mg PO DAILY 05/03/16 06/20/16 History Levothyroxine Sodium [Synthroid] 175 mcg PO DAILY 05/03/16 06/20/16 History Lisinopril-Hctz 10-12.5 mg 1 tab PO DAILY 05/03/16 06/20/16 History [Zestoretic 10-12.5] Pyridostigmine [place] [M[place]] 60 mg PO TID 05/03/16 06/20/16 History amLODIPine [Norvasc] 5 mg PO DAILY 05/03/16 06/20/16 History HYDROcodone/APAP 5-325MG [[place] 1 tab PO BID PRN 05/12/16 06/20/16 History 5-325] Esomeprazole Magnesium [NexIUM] 40 mg PO DAILY 06/20/16 06/20/16 History Lovastatin [Mevacor] 20 mg PO HS 06/20/16 06/20/16 History Potassium Bicarbonate/Cit AC 25 meq PO DAILY 06/20/16 06/20/16 History [Potassium 25 Meq Tablet Eff] Allergies Allergy/AdvReac Type Severity Reaction Status Date / Time oxytetracycline Allergy Anaphylaxis Verified 06/20/16 18:14 [From Terramycin] polymyxin B Allergy Unknown Verified 06/20/16 18:45 Physical Exam Vitals: Vital Signs Temp Pulse Resp BP Pulse Ox 06/21/16 19:00 109 H 13 102/55 97 06/21/16 18:30 108 H 14 106/54 97 06/21/16 18:00 104 H 14 132/62 98 06/21/16 17:30 109 H 11 L 113/58 98 06/21/16 17:00 112 H 19 117/55 97 06/21/16 16:30 109 H 16 108/55 93 L 06/21/16 16:02 107 H 06/21/16 16:00 99.3 F 108 H 17 107/60 06/21/16 15:39 107 H 06/21/16 15:00 106 H 15 106/56 99 06/21/16 14:00 100 12 113/59 99 06/21/16 13:20 99 06/21/16 13:03 102 H 06/21/16 13:00 106 H 15 107/54 98 06/21/16 12:00 104 H 19 133/63 99 06/21/16 11:31 20 06/21/16 11:00 107 H 20 131/63 95 06/21/16 10:30 108 H 19 110/56 98 06/21/16 10:00 105 H 16 114/70 98 06/21/16 09:30 103 H 13 114/57 98 06/21/16 09:11 105 H 06/21/16 09:00 98.6 F 98 12 102/57 98 06/21/16 08:51 103 H 06/21/16 08:30 100 18 111/55 99 06/21/16 08:00 99 14 94/50 98 06/21/16 07:30 98 13 93/53 97 06/21/16 07:00 99 12 93/48 97 06/21/16 06:30 101 H 13 90/51 98 06/21/16 06:00 100 13 97/54 98 06/21/16 05:30 101 H 14 104/59 99 06/21/16 05:00 100 13 136/79 99 06/21/16 04:30 97.0 F L 111 H 12 145/80 98 06/21/16 04:00 106 H 20 137/77 98 06/21/16 03:30 105 H 19 124/73 99 06/21/16 03:00 102 H 21 116/78 98 06/21/16 02:30 104 H 22 120/73 98 06/21/16 02:00 111 H 17 110/69 98 06/21/16 01:30 100 20 98/62 98 06/21/16 01:00 98 18 96/64 99 06/21/16 00:30 99 20 98/62 99 06/21/16 00:00 101 H 17 97/59 98 06/20/16 23:30 103 H 18 103/63 98 06/20/16 23:00 97.8 F 109 H 18 154/87 97 06/20/16 22:04 97.0 F L 120 H 18 157/68 99 06/20/16 20:34 152 H 20 167/81 98 06/20/16 20:10 98.1 F 160 H 20 144/102 98 Intake and Output 06/21/16 06/21/16 06/21/16 06:59 14:59 22:59 Intake Total 850.0 800 679.68 Output Total 672 286 120 Balance 178.0 514 559.68 Intake: IV 850.0 800 500 Piperacillin-Tazobactam 3 50.0 .375 gm In Dextrose/Water 1 50ml.bag @ 12.5 mls/hr IVPB ONCE [facility] Rx#: [id number] Sodium Chloride 0.9% 1, 800 800 500 000 ml @ 100 mls/hr IV . Q10H [facility] Rx#:[id number] Intake, IV Titration 179.68 Amount Propofol 500 mg In Empty 54.68 Bag 1 bag @ Titrate IV . Q0M [facility] Rx#:[id number] Vancomycin 1,500 mg In 125 Sodium Chloride 0.9% 250 ml @ 125 mls/hr IVPB Q16H [facility] Rx#:[id number] Output: Gastric Drainage 250 Urine 422 286 120 Other: Voiding Method Indwelling Catheter Indwelling Catheter Indwelling Catheter Weight 77.4 kg 77.4 kg Patient Weight 06/22/16 06:59 Weight 77.4 kg ABP, PAP, CO, CI - Last 8 Hours Arterial Blood Pressure 131/42 Arterial Blood Pressure 121/41 Arterial Blood Pressure 136/41 Arterial Blood Pressure 150/49 Arterial Blood Pressure 146/49 Arterial Blood Pressure 138/46 Arterial Blood Pressure 135/50 Arterial Blood Pressure 125/56 Arterial Blood Pressure 123/50 Arterial Blood Pressure 139/57 Arterial Blood Pressure 114/53 HEENT: Anicteric conjunctiva are pink and moist nasal mucosa grossly intact without significant lesions, there is no thrush. There is evidence of minimal discharge to the left ear. Appears to have some tenderness upon manipulation to the posterior aspect of the left ear. Right ear is without swelling or tenderness. Neck: The neck is supple without significant lymphadenopathy or thyromegaly. The patient is heavily sedated. Lungs: Good bilateral air entry without significant crackles or wheezing. There is no significant bronchial sounds. There is no egophony or dullness. Heart: Regular rate and rhythm with an audible S1-S2, no S3 no S4. There is no significant murmur click or rub, PMI was nondisplaced. Abdomen: Positive bowel sounds soft and nontender without palpable masses or organomegaly. There was no guarding or rebound. Extremities: The upper extremities have excellent pulses they are symmetric, no significant petechiae or telangiectasia. No splinter hemorrhages were noted. The lower extremities are free from significant edema. The peripheral pulses were 2+ and symmetric. Neuro: Intubated sedated and mechanically ventilated. Results CBC & Chem 7: 06/21/16 06:40 06/21/16 06:40 Labs: Abnormal Lab Results - Last 24 Hours (Table) 06/20/16 06/20/16 06/20/16 Range/Units 20:05 22:42 23:03 WBC (3.8-10.6) k/uL MCV (80.0-100.0) fL MCHC (31.0-37.0) g/dL Neutrophils # (Manual) (1.3-7.7) k/uL Lymphocytes # (Manual) (1.0-4.8) k/uL Monocytes # (Manual) (0-1.0) k/uL ABG pH 7.32 L (7.35-7.45) ABG pCO2 (35-45) mmHg ABG pO2 109 H (83-108) mmHg ABG HCO3 19 L (21-25) mmol/L ABG O2 Saturation 98.0 H (94-97) % Chloride (98-107) mmol/L Carbon Dioxide (22-30) mmol/L Glucose (74-99) mg/dL POC Glucose (mg/dL) 197 H (75-99) mg/dL Calcium (8.4-10.2) mg/dL CK-MB (CK-2) (0.0-2.4) ng/mL Troponin I (0.000-0.034) ng/mL Total Protein (6.3-8.2) g/dL Albumin (3.5-5.0) g/dL CSF Tot Nucleated Cells 05465 H (0-5) u/L CSF Glucose <20 L (40-70) mg/dL CSF Total Protein >600 H (12-60) mg/dL 06/21/16 06/21/16 06/21/16 Range/Units 00:42 04:44 06:10 WBC (3.8-10.6) k/uL MCV (80.0-100.0) fL MCHC (31.0-37.0) g/dL Neutrophils # (Manual) (1.3-7.7) k/uL Lymphocytes # (Manual) (1.0-4.8) k/uL Monocytes # (Manual) (0-1.0) k/uL ABG pH (7.35-7.45) ABG pCO2 32 L (35-45) mmHg ABG pO2 157 H (83-108) mmHg ABG HCO3 20 L (21-25) mmol/L ABG O2 Saturation 99.0 H (94-97) % Chloride (98-107) mmol/L Carbon Dioxide (22-30) mmol/L Glucose (74-99) mg/dL POC Glucose (mg/dL) 116 H (75-99) mg/dL Calcium (8.4-10.2) mg/dL CK-MB (CK-2) 6.5 H* (0.0-2.4) ng/mL Troponin I 1.060 H* (0.000-0.034) ng/mL Total Protein (6.3-8.2) g/dL Albumin (3.5-5.0) g/dL CSF Tot Nucleated Cells (0-5) u/L CSF Glucose (40-70) mg/dL CSF Total Protein (12-60) mg/dL 06/21/16 06/21/16 06/21/16 Range/Units 06:40 06:40 06:40 WBC 20.5 H (3.8-10.6) k/uL MCV 100.9 H (80.0-100.0) fL MCHC 29.6 L (31.0-37.0) g/dL Neutrophils # (Manual) 18.1 H (1.3-7.7) k/uL Lymphocytes # (Manual) 0.9 L (1.0-4.8) k/uL Monocytes # (Manual) 1.3 H (0-1.0) k/uL ABG pH (7.35-7.45) ABG pCO2 (35-45) mmHg ABG pO2 (83-108) mmHg ABG HCO3 (21-25) mmol/L ABG O2 Saturation (94-97) % Chloride 108 H (98-107) mmol/L Carbon Dioxide 21 L (22-30) mmol/L Glucose 114 H (74-99) mg/dL POC Glucose (mg/dL) (75-99) mg/dL Calcium 7.8 L (8.4-10.2) mg/dL CK-MB (CK-2) 6.3 H* (0.0-2.4) ng/mL Troponin I 1.150 H* (0.000-0.034) ng/mL Total Protein 5.4 L (6.3-8.2) g/dL Albumin 2.6 L (3.5-5.0) g/dL CSF Tot Nucleated Cells (0-5) u/L CSF Glucose (40-70) mg/dL CSF Total Protein (12-60) mg/dL 06/21/16 Range/Units 19:07 WBC (3.8-10.6) k/uL MCV (80.0-100.0) fL MCHC (31.0-37.0) g/dL Neutrophils # (Manual) (1.3-7.7) k/uL Lymphocytes # (Manual) (1.0-4.8) k/uL Monocytes # (Manual) (0-1.0) k/uL ABG pH (7.35-7.45) ABG pCO2 (35-45) mmHg ABG pO2 (83-108) mmHg ABG HCO3 (21-25) mmol/L ABG O2 Saturation (94-97) % Chloride (98-107) mmol/L Carbon Dioxide (22-30) mmol/L Glucose (74-99) mg/dL POC Glucose (mg/dL) 64 L (75-99) mg/dL Calcium (8.4-10.2) mg/dL CK-MB (CK-2) (0.0-2.4) ng/mL Troponin I (0.000-0.034) ng/mL Total Protein (6.3-8.2) g/dL Albumin (3.5-5.0) g/dL CSF Tot Nucleated Cells (0-5) u/L CSF Glucose (40-70) mg/dL CSF Total Protein (12-60) mg/dL Microbiology - Last 24 Hours (Table) 06/20/16 20:05 CSF Gram Stain - Preliminary Cerebral Spinal Fluid Laboratory Results WBC 20.5 k/uL (3.8-10.6) H 06/21/16 06:40 RBC 4.00 m/uL (3.80-5.40) 06/21/16 06:40 Hgb 11.9 gm/dL (11.4-16.0) 06/21/16 06:40 Hct 40.3 % (34.0-46.0) 06/21/16 06:40 MCV 100.9 fL (80.0-100.0) H 06/21/16 06:40 MCH 29.8 pg (25.0-35.0) 06/21/16 06:40 MCHC 29.6 g/dL (31.0-37.0) L 06/21/16 06:40 RDW 14.2 % (11.5-15.5) 06/21/16 06:40 Plt Count 160 k/uL (150-450) 06/21/16 06:40 Neutrophils % (Manual) 68.5 % 06/21/16 06:40 Band Neutrophils % 20.0 % 06/21/16 06:40 Lymphocytes % (Manual) 4.5 % 06/21/16 06:40 Monocytes % (Manual) 6.5 % 06/21/16 06:40 Metamyelocytes % 0.5 % 06/21/16 06:40 Neutrophils # (Manual) 18.1 k/uL (1.3-7.7) H 06/21/16 06:40 Lymphocytes # (Manual) 0.9 k/uL (1.0-4.8) L 06/21/16 06:40 Monocytes # (Manual) 1.3 k/uL (0-1.0) H 06/21/16 06:40 Nucleated RBCs 0 /100 WBC (0-0) 06/21/16 06:40 Manual Slide Review Performed 06/20/16 18:38 Hypochromasia Moderate 06/21/16 06:40 Anisocytosis (manual) Present 06/21/16 06:40 Macrocytosis Slight 06/21/16 06:40 PT 12.2 sec (9.0-12.0) H 06/20/16 18:38 INR 1.2 (<1.1) 06/20/16 18:38 APTT 21.6 sec (22.0-30.0) L 06/20/16 18:38 Sample Site ELIZABETH 06/21/16 04:44 ABG pH 7.40 (7.35-7.45) 06/21/16 04:44 ABG pCO2 32 mmHg (35-45) L 06/21/16 04:44 ABG pO2 157 mmHg (83-108) H 06/21/16 04:44 ABG HCO3 20 mmol/L (21-25) L 06/21/16 04:44 ABG Total CO2 21 mmol/L (19-24) 06/21/16 04:44 ABG O2 Saturation 99.0 % (94-97) H 06/21/16 04:44 ABG Base Excess -4.5 mmol/L 06/21/16 04:44 FiO2 50 % 06/21/16 04:44 Sodium 138 mmol/L (137-145) 06/21/16 06:40 Potassium 3.6 mmol/L (3.5-5.1) 06/21/16 06:40 Chloride 108 mmol/L (98-107) H 06/21/16 06:40 Carbon Dioxide 21 mmol/L (22-30) L 06/21/16 06:40 Anion Gap 9 mmol/L 06/21/16 06:40 BUN 14 mg/dL (7-17) 06/21/16 06:40 Creatinine 0.70 mg/dL (0.52-1.04) 06/21/16 06:40 Est GFR (MDRD) Af Amer >60 (>60 ml/min/1.73 sqM) 06/21/16 06:40 Est GFR (MDRD) Non-Af >60 (>60 ml/min/1.73 sqM) 06/21/16 06:40 Glucose 114 mg/dL (74-99) H 06/21/16 06:40 POC Glucose (mg/dL) 88 mg/dL (75-99) 06/21/16 19:09 POC Glu Racing [employer] Boyd Muñoz 06/21/16 19:09 Plasma Lactic Acid [place] 1.4 mmol/L (0.7-2.0) 06/21/16 06:40 Calcium 7.8 mg/dL (8.4-10.2) L 06/21/16 06:40 Phosphorus 3.3 mg/dL (2.5-4.5) 06/21/16 06:40 Magnesium 2.0 mg/dL (1.6-2.3) 06/21/16 06:40 Total Bilirubin 0.3 mg/dL (0.2-1.3) 06/21/16 06:40 AST 22 U/L (14-36) 06/21/16 06:40 ALT 27 U/L (9-52) 06/21/16 06:40 Alkaline Phosphatase 71 U/L (38-126) 06/21/16 06:40 Total Creatine Kinase 95 U/L (30-135) 06/21/16 06:40 CK-MB (CK-2) 6.3 ng/mL (0.0-2.4) H* 06/21/16 06:40 CK-MB (CK-2) Rel Index 6.6 06/21/16 06:40 Troponin I 1.150 ng/mL (0.000-0.034) H* 06/21/16 06:40 Total Protein 5.4 g/dL (6.3-8.2) L 06/21/16 06:40 Albumin 2.6 g/dL (3.5-5.0) L 06/21/16 06:40 Cortisol 32 ug/dL 06/20/16 18:38 Urine Color Yellow 06/20/16 18:38 Urine Appearance Clear (Clear) 06/20/16 18:38 Urine pH 6.0 (5.0-8.0) 06/20/16 18:38 Ur Specific [place] 1.025 (1.001-1.035) 06/20/16 18:38 Urine Protein 1+ (Negative) H 06/20/16 18:38 Urine Glucose (UA) Negative (Negative) 06/20/16 18:38 Urine Ketones Negative (Negative) 06/20/16 18:38 Urine Blood Large (Negative) H 06/20/16 18:38 Urine Nitrate Negative (Negative) 06/20/16 18:38 Urine Bilirubin Negative (Negative) 06/20/16 18:38 Urine Urobilinogen <2.0 mg/dL (<2.0) 06/20/16 18:38 Ur Leukocyte Esterase Negative (Negative) 06/20/16 18:38 Urine RBC >182 /hpf (0-5) H 06/20/16 18:38 Urine WBC 2 /hpf (0-5) 06/20/16 18:38 Ur Squamous Epith Cells <1 /hpf (0-4) 06/20/16 18:38 Amorphous Sediment Occasional /hpf (None) H 06/20/16 18:38 Urine Mucus Rare /hpf (None) H 06/20/16 18:38 CSF Tube Number 4 06/20/16 20:05 CSF Volume 3.0 06/20/16 20:05 CSF Appearance Cloudy 06/20/16 20:05 CSF Color Xanthochromic 06/20/16 20:05 CSF RBC 6 u/L (0-10) 06/20/16 20:05 CSF Tot Nucleated Cells 29289 u/L (0-5) H 06/20/16 20:05 CSF Mononuclear WBCs % 5 % 06/20/16 20:05 CSF Polynuclear WBCs % 95 % 06/20/16 20:05 CSF Glucose <20 mg/dL (40-70) L 06/20/16 20:05 CSF Total Protein >600 mg/dL (12-60) H 06/20/16 20:05 Influenza Type A RNA Not Detected (Not Detectd) 06/20/16 18:38 Influenza Type B (PCR) Not Detected (Not Detectd) 06/20/16 18:38 Microbiology 06/20/16 18:38 Urine,Catheterized Urine Culture - Final 06/20/16 20:05 Cerebral Spinal Fluid CSF Gram Stain - Preliminary Assessment and Plan (1) Acute bacterial meningitis Narrative/Plan: 80-year-old female who is known history of chronic mastoiditis with otitis media. She is evidence of recent fall with nasal fractures and some residual inflammation of her sinus cavities. However it appears that the chronic infection to the left ear has resulted in the current meningitis. The laboratories revealing evidence of gram-positive cocci which would then most likely correlated Streptococcus pneumoniae which is on the most common causes of meningitis in this situation. While cultures are pending antibiotic therapy as a vancomycin therapy as well as high-dose ceftriaxone at 2 g IV piggyback every 12 hours. The computed tomography scan has been evaluated with no evidence of any brain abscess. An consequently would not need add metronidazole at this time. Would continue ongoing supportive care. She's not requiring vasopressors at this time. She is a significant leukocytosis and the basis of her meningitis. The lactic acid 30 improved to 1.4 after her resuscitation. Status: Acute (2) Fever Status: Acute (3) Chronic mastoiditis of left side Status: Acute
[2016-06-21] MEDS: CIPROFLOXACIN-DEXAMETH 0.3-0.1% DROPS 7.5 ML BTL LEFT EAR SCH (20:55)
[2016-06-21] MEDS: METOPROLOL TARTRATE 12.5 MG TAB PO SCH (20:55)
--- NOTE | 2016-06-21 22:52 | CT ---
EXAMINATION TYPE: CT brain wo con DATE OF EXAM: 06/21/2016 10:35 PM COMPARISON: 06/20/2016 HISTORY: Bacterial meningitis. CT DLP: 1039.60 mGycm Automated exposure control for dose reduction was used. FINDINGS: There is mild hypodensity in the periventricular white matter. There is no mass effect or midline emelia ft. There is no sign of intracranial hemorrhage. Calvarium is intact. There is some mucosal thickenin g in the ethmoid and maxillary sinuses. IMPRESSION: Cerebral atrophy and mild chronic small vessel ischemia. No acute intracranial abnormality. There is a tiny amount of intracranial air on the last exam that is mostly cleared on today's exam probably du e to lumbar puncture. No acute intracranial abnormality. Mild sinusitis.
[2016-06-22] MEDS: PROPOFOL 500 MG in EMPTY BAG 1 BAG IV SCH ×2 (00:05→10:32)
[2016-06-22 00:31] LABS: Glucose,Whole Blood 108 mg/dL (75-99)
[2016-06-22] MEDS: VANCOMYCIN 1,500 MG in SODIUM CHLORIDE 0.9% 250 ML IVPB SCH ×2 (03:11→20:38)
[2016-06-22 05:24] LABS: CHCM 29.7; HCT 39.1 % (34.0-46.0); HDW 2.12; HGB 11.3 gm/dL (11.4-16.0); Hypochromasia Marked; MCH 29.2 pg (25.0-35.0); MCHC 28.8 g/dL (31.0-37.0); MCV 101.3 fL (80.0-100.0); Macrocytosis Slight; Mean Platelet Volume 8.4; RBC 3.86 m/uL (3.80-5.40); RDW 14.3 % (11.5-15.5); WBC (Perox) 28.33
[2016-06-22 05:39] LABS: ALT 24 U/L (9-52); AST 27 U/L (14-36); Alkaline Phosphatase 79 U/L (38-126); Anion Gap 10 mmol/L; Blood Urea Nitrogen 19 mg/dL (7-17); Carbon Dioxide 18 mmol/L (22-30); Chloride 115 mmol/L (98-107); Glucose 94 mg/dL (74-99); Non-African American GFR(MDRD) >60 (>60 ml/min/1.73 sqM); Potassium 3.8 mmol/L (3.5-5.1); Sodium 143 mmol/L (137-145); Total Bilirubin 0.3 mg/dL (0.2-1.3); Total Protein 5.2 g/dL (6.3-8.2)
[2016-06-22 05:55] LABS: ABG Base Excess -7.1 mmol/L; ABG HCO3 18 mmol/L (21-25); ABG PCO2 34 mmHg (35-45); ABG PH 7.34 (7.35-7.45); ABG PO2 126 mmHg (83-108); ABG TCO2 19 mmol/L (19-24)
[2016-06-22 05:59] LABS: WBC 26.8 k/uL (3.8-10.6)
[2016-06-22] MEDS: LEVOTHYROXINE 100 MCG TAB PO SCH (06:59)
[2016-06-22] MEDS: SODIUM CHLORIDE 0.9% 1,000 ML IV SCH ×2 (07:00→14:00)
[2016-06-22] MEDS: LEVOTHYROXINE 75 MCG TAB PO SCH (07:00)
--- NOTE | 2016-06-22 07:21 | XR ---
EXAMINATION TYPE: XR chest 1V DATE OF EXAM: 06/22/2016 7:10 AM COMPARISON: Prior chest x-ray 21 June 2016 HISTORY: Ventilator-dependent respiratory failure TECHNIQUE: Single frontal view of the chest is obtained. FINDINGS: Endotracheal tube is overlying the tracheal air column approximately 13 mm from the mukund . NG tube is in place overlying appropriate position. Distal tip not seen. Surgical clips are present in the right upper quadrant. There are overlying cardiac leads and the patient is rotated. Lung volu mes are low. Interstitium is increased. Heart size may be accentuated by rotation. Arthropathy noted within the shoulders. No pneumothorax. Retrocardiac density is present, the left hemidiaphragm is obs cured in the interval. IMPRESSION: Possible left lower lobe atelectasis versus pneumonia or edema. Correlate for volume ove rload, pulmonary venous hypertension and interstitial edema. Follow-up is recommended.
[2016-06-22 07:23] LABS: Add Differential Manual Differential
[2016-06-22 07:27] LABS: Nucleated Red Blood Cells 0 /100 WBC (0-0); Total Cells Counted 200
[2016-06-22 07:30] LABS: Toxic Granulation Present
[2016-06-22] MEDS: IPRATROPIUM-ALBUTEROL 3 ML NEB INHALATION SCH ×4 (07:40→20:03)
[2016-06-22] MEDS ORDERED: Potassium Replacement Protocol 1 EACH MISC MISCELLANE PRN (07:46)
[2016-06-22] MEDS ORDERED: POTASSIUM CHLORIDE ORAL LIQUID 40 MEQ/30 ML CUP NG-TUBE SCH (08:00)
[2016-06-22] MEDS: cefTRIAXone 2,000 MG in SODIUM CHLORIDE 0.9% 100 ML IVPB SCH ×2 (08:04→20:21)
[2016-06-22] MEDS: FAMOTIDINE 20 MG/2 ML VIAL IV SCH (08:07)
[2016-06-22] MEDS: CHLORHEXIDINE GLUCONATE 15 ML CUP MUCOUS MEM SCH (08:07)
[2016-06-22] MEDS: CIPROFLOXACIN-DEXAMETH 0.3-0.1% DROPS 7.5 ML BTL LEFT EAR SCH ×3 (08:07→20:22)
[2016-06-22] MEDS: ENOXAPARIN 40 MG/0.4 ML SYRINGE SQ SCH (08:08)
[2016-06-22] MEDS: METOPROLOL TARTRATE 12.5 MG TAB PO SCH ×2 (08:08→20:19)
[2016-06-22] MEDS: PYRIDOSTIGMINE 60 MG TAB PO SCH ×3 (08:08→20:19)
--- NOTE | 2016-06-22 08:44 | P.PN ---
Subjective 80-year-old female patient who initially presented to [facility] with fever, change in mental status and agitation. The patient accordingly was transferred to our hospital for further care. In the emergency department the patient was found to be significantly confused and at a later stage became unresponsive, and she was intubated and placed on a mechanical ventilator. Lumbar puncture was done and the patient was found to have abnormalities consistent with acute meningitis specifically with elevated CSF white cell count , low glucose and markedly elevated protein. The Gram stain is showing gram- positive cocci. As such the patient was given a dose of vancomycin and started on Rocephin 2 g every 12 hours. The patient was kept intubated and then got moved to the intensive care unit for further care. This patient has previous history of chronic ear infections and mastoids disease /mastoiditis. The patient had a fall approximately 6 weeks ago and she had her face on a metal bar at the shower door. She end up having a very bloody large right glabellar laceration, left eyebrow laceration and ended up having a nasal bone and septal fracture with septum being deviated to the left. CAT scan was done back then and it showed medial maxillary sinus fracture and septal deviation/fracture along with the glabellar and left brow laceration. Based on this, the patient was taken to the operating room by ENT on 05/12/2016 and the patient underwent open reduction of a nasal bone fracture with fixation, septoplasty, closed reduction of the left axillary fracture. Subsequently, the patient was seen in our emergency department on 06/19/2016 for left ear pain. She was also having difficulty in hearing. There was also reported drainage from the left ear where bloody purulent drainage was reported. She denies having any fever or headache neck stiffness or any change in mental status back then. Apparently there is history of bilateral perforation of the eardrums. The patient accordingly was given Augmentin leverman 875 mg 1 tablet twice a day in addition to ciprofloxacin ear solution and she was discharged home to be followed up by her primary care physician and ENT. Her condition decompensated and she presented back to the emergency department a day later with acute meningitis. At this point in time, the patient is intubated on a mechanical ventilator. She is an assist-control mode of breathing at the rate of 12, tidal volume 450, FiO2 of 50% and a PEEP of 5. She had received a total of 2 L of IV fluid in the form of normal saline as bolus and she is hemodynamically stable. She is on no pressors. She is currently on a maintenance fluid of 0.9 normal saline at the rate of 100 mL an hour. She is sedated with Diprivan and it is running at 25 mics. She is producing adequate amount of urine output. CAT scan of the auditory canals showed evidence of otitis externa and otitis interna on the left side with complete opacification of the middle ear cavity. There is also also sclerosis of the left mastoid consistent with chronic mastoiditis. The patient also had evidence of pansinusitis. Possibility of cholesteatoma was also raised in the left ear. The left ear is currently draining some purulent material and the drainage is cloudy/creamy and nonbloody. Note that in the emergency department the patient went into SVT. The patient was given adenosine and subsequently she converted into A. fib/RVR and then into sinus rhythm. Her current rhythm is sinus at this point. On 06/22/2016, the patient is being seen in follow-up. As mentioned earlier, the patient had developed an acute active meningitis secondary to an inner and action. The primary cultures are showing pneumococcus. The patient is still on a combination of IV Rocephin 2 g every 12 hours and IV vancomycin. A repeat CAT scan of the brain was done yesterday and showed no acute abnormalities. The patient was having otorrhea from the left ear and she was evaluated by ear nose throat and she was being considered for a left ear canal cleaning with further examination with microscope and left myringotomy and tympanostomy tube insertion. This procedure however has been placed on hold knowing that the patient is being constant for comfort care knowing that she had a ENR DO NOT INTUBATE CODE STATUS and the family will be arriving today to the ICU and I was told that they're very much interested in extubating this patient and proceeding with comfort care. I have yet to meet the family to clarify these wishes. Meanwhile, the patient remains hemodynamic is stable. Overnight her urine output dropped and she received a total of 2 L of IV fluid bolus. Her current blood pressure is stable on no pressors. She is afebrile. She is sedated with Diprivan. She is an assist-control mode of ventilation at the rate of 12, tidal volume 450, FiO2 of 40% and PEEP of 5 and a morning blood gases showed a pH of 7.34 with a pCO2 of 34 and pO2 of 126. The chest x-ray showing a left sided pleural effusion and there orotracheal tube and the orogastric tube are both in good location. White cell count remains elevated at 26.8. Objective - Vital Signs Vital signs: Vital Signs Temp 98.2 F 06/22/16 04:00 Pulse 98 06/22/16 07:51 Resp 13 06/22/16 07:00 BP 143/83 06/22/16 07:00 Pulse Ox 96 06/22/16 07:00 Intake & Output 06/21/16 06/22/16 06/22/16 18:59 06:59 18:59 Intake Total 1379.68 3731.785 216.4 Output Total 386 345 45 Balance 993.68 3386.785 171.4 Weight 77.4 kg Intake: IV 1200 900 100 Sodium Chloride 0.9% 1, 1200 800 000 ml @ 100 mls/hr IV . Q10H [facility] Rx#:[id number] cefTRIAXone 2,000 mg In 100 100 Sodium Chloride 0.9% 100 ml @ 100 mls/hr IVPB Q12HR [facility] Rx#:[id number] Intake, IV Titration 179.68 2831.785 116.4 Amount Propofol 50 ml As IV .STK 16.4 -[facility] Rx#:[id number] Propofol 500 mg In Empty 54.68 81.785 Bag 1 bag @ Titrate IV . Q0M [facility] Rx#:[id number] Sodium Chloride 0.9% 1, 100 000 ml @ 100 mls/hr IV . Q10H [facility] Rx#:[id number] Sodium Chloride 0.9% 500 500 ml @ 999 mls/hr IV .Q31M [facility] Rx#:[id number] Sodium Chloride 0.9% 500 2000 ml @ 999 mls/hr IV .Q31M [facility] Rx#:[id number] Vancomycin 1,500 mg In 125 250 Sodium Chloride 0.9% 250 ml @ 125 mls/hr IVPB Q16H [facility] Rx#:[id number] Output: Urine 386 345 45 Other: Voiding Method Indwelling Catheter Indwelling Catheter ABP, PAP, CO, CI - Last Documented Arterial Blood Pressure 129/47 - Exam Patient is sedated, intubated, on a mechanical ventilator. Orogastric and orotracheal tube are both in place. Head is atraumatic and normocephalic. There is no neck stiffness. There is no goiter or neck masses. There is no JVDs. No cervical lymphadenopathy. The left ear canal is completely obliterated with purulent material and appropriate dressing was applied to control the drainage. Examination of the left ear was somewhat limited because of the excess amount of purulent material occupying the left ear canal. The eardrum and the tympanic membrane and the rest of the the structures cannot be assessed. No purulent drainage from the sinuses. The right ear is within normal limits.Lungs were clear to auscultation and percussion, and with normal diaphragmatic excursion. No wheezes or rales were noted. Cardiac exam revealed the PMI to be normally situated and sized. The rhythm was regular and no extrasystoles were noted during several minutes of auscultation. The first and second heart sounds were normal and physiologic splitting of the second heart sound was noted. There were no murmurs, rubs, clicks, or gallops.Abdominal exam revealed normal bowel sounds. The abdomen was soft, non-tender, and without masses, organomegaly, or appreciable enlargement of the abdominal aorta.Examination of the extremities revealed easily palpable radial, femoral and pedal pulses. There was no cyanosis, clubbing or edema. Neurologically the patient's pupils around 3-4 mm in size, she is withdrawing to a full stimuli in all 4 extremities. No Babinski. No clonus. No hyperreflexia. - Labs CBC & Chem 7: 06/22/16 05:10 06/22/16 05:10 Labs: Abnormal Lab Results - Last 24 Hours (Table) 06/21/16 06/22/16 06/22/16 Range/Units 19:07 00:30 05:10 WBC (3.8-10.6) k/uL Hgb (11.4-16.0) gm/dL MCV (80.0-100.0) fL MCHC (31.0-37.0) g/dL Neutrophils # (Manual) (1.3-7.7) k/uL Monocytes # (Manual) (0-1.0) k/uL ABG pH (7.35-7.45) ABG pCO2 (35-45) mmHg ABG pO2 (83-108) mmHg ABG HCO3 (21-25) mmol/L ABG O2 Saturation (94-97) % Chloride 115 H (98-107) mmol/L Carbon Dioxide 18 L (22-30) mmol/L BUN 19 H (7-17) mg/dL POC Glucose (mg/dL) 64 L 108 H (75-99) mg/dL Calcium 8.0 L (8.4-10.2) mg/dL Total Protein 5.2 L (6.3-8.2) g/dL Albumin 2.4 L (3.5-5.0) g/dL 06/22/16 06/22/16 Range/Units 05:10 05:12 WBC 26.8 H* (3.8-10.6) k/uL Hgb 11.3 L (11.4-16.0) gm/dL MCV 101.3 H (80.0-100.0) fL MCHC 28.8 L (31.0-37.0) g/dL Neutrophils # (Manual) 23.7 H (1.3-7.7) k/uL Monocytes # (Manual) 1.6 H (0-1.0) k/uL ABG pH 7.34 L (7.35-7.45) ABG pCO2 34 L (35-45) mmHg ABG pO2 126 H (83-108) mmHg ABG HCO3 18 L (21-25) mmol/L ABG O2 Saturation 99.0 H (94-97) % Chloride (98-107) mmol/L Carbon Dioxide (22-30) mmol/L BUN (7-17) mg/dL POC Glucose (mg/dL) (75-99) mg/dL Calcium (8.4-10.2) mg/dL Total Protein (6.3-8.2) g/dL Albumin (3.5-5.0) g/dL Assessment and Plan Plan: Impression 1 acute bacterial meningitis, a complication of a left otitis media/interna. The CSF evaluation is typical of an acute bacterial meningitis and the patient has gram-positive cocci and this most likely indicates an underlying streptococcal urine infection with secondary meningitis. Currently on a combination of Rocephin and vancomycin. On 06/22/2016, the patient is being seen in follow-up pH remains intubated on a mechanical ventilator. She is being treated for an acute anterior meningitis a complication of a left otitis interna. The primary cultures from the CSF is showing progress and the patient is still on a combination of vancomycin and Rocephin. Cultures and sensitivities and SHAYNE is are still pending for now. The patient was admitted to by ENT. Recommendations were made to have a left nyringotomy and typanostomy . However I'm not sure we'll get a proceed with these recommendations as long as there is interest by the family to proceed with comfort care measures and extubate the patient today. As such the surgical intervention will be kept on hold for now. 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 Surgery was done on 05/12/2016 5 fever secondary to above, currently afebrile 6 leukocytosis secondary to above, still elevated white cell count of 26,000 7 acute respiratory failure. The patient is intubated for airway protection as the patient has significant impairment in level of consciousness. Currently intubated on a mechanical ventilator with adequate oxygenation and ventilation. 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 Continue current antibiotic coverage. Awaiting final cultures and sensitivities. Will be meeting with the family in regards to CODE STATUS and further goals of treatment and care. Minor stenting that the patient had a DNR/DNI CODE STATUS and her children are very much interested in extubate this patient and proceeding with comfort care measures. We have a meeting at around 9:30 and will make further recommendations. I would say her prognosis essentially poor based on the presence of multiple medical problems and comorbidities in addition to an acute bacterial meningitis. The sedation was done and 31 minutes and this is a critically care evaluation. Time with Patient: Greater than 30
--- NOTE | 2016-06-22 09:09 | P.PN ---
Subjective This is an 80-year-old female patient with a past medical history significant for COPD, hypertension, and dyslipidemia, who was found by her son at home sitting in the kitchen unconscious The patient was brought to the emergency room here where she underwent a lumbar puncture which showed finding consistent with possible meningitis. Immediately the patient was intubated in the ER because of the change in mental status. Currently the patient is intubated and she is on ventilator. Hemodynamically she continues to be stable with mild sinus tachycardia. The reason we get involved in the care of the patient because she went into narrow complex tachycardia to me looks like SVT with possible atrial tachycardia. Currently the patient is in normal sinus mechanism and she is hemodynamically stable. On follow-up with her the patient yesterday was started on metoprolol but she never received it because of blood pressure has been marginally low. Apparently she is septic at this point but she does not require any vasopressors and the pressure has been marginally low. Objective - Vital Signs Vital signs: Vital Signs Temp 98.2 F 06/22/16 08:00 Pulse 91 06/22/16 08:00 Resp 11 L 06/22/16 08:00 BP 143/83 06/22/16 07:00 Pulse Ox 97 06/22/16 08:00 Intake & Output 06/21/16 06/22/16 06/22/16 18:59 06:59 18:59 Intake Total 1379.68 3731.785 216.4 Output Total 386 345 45 Balance 993.68 3386.785 171.4 Weight 77.4 kg Intake: IV 1200 900 100 Sodium Chloride 0.9% 1, 1200 800 000 ml @ 100 mls/hr IV . Q10H [facility] Rx#:[id number] cefTRIAXone 2,000 mg In 100 100 Sodium Chloride 0.9% 100 ml @ 100 mls/hr IVPB Q12HR [facility] Rx#:[id number] Intake, IV Titration 179.68 2831.785 116.4 Amount Propofol 50 ml As IV .STK 16.4 -[facility] Rx#:[id number] Propofol 500 mg In Empty 54.68 81.785 Bag 1 bag @ Titrate IV . Q0M [facility] Rx#:[id number] Sodium Chloride 0.9% 1, 100 000 ml @ 100 mls/hr IV . Q10H [facility] Rx#:[id number] Sodium Chloride 0.9% 500 500 ml @ 999 mls/hr IV .Q31M [facility] Rx#:[id number] Sodium Chloride 0.9% 500 2000 ml @ 999 mls/hr IV .Q31M [facility] Rx#:[id number] Vancomycin 1,500 mg In 125 250 Sodium Chloride 0.9% 250 ml @ 125 mls/hr IVPB Q16H [facility] Rx#:[id number] Output: Urine 386 345 45 Other: Voiding Method Indwelling Catheter Indwelling Catheter ABP, PAP, CO, CI - Last Documented Arterial Blood Pressure 113/48 - Constitutional General appearance: Present: mild distress - Labs CBC & Chem 7: 06/22/16 05:10 06/22/16 05:10 Labs: Abnormal Lab Results - Last 24 Hours (Table) 06/21/16 06/22/16 06/22/16 Range/Units 19:07 00:30 05:10 WBC (3.8-10.6) k/uL Hgb (11.4-16.0) gm/dL MCV (80.0-100.0) fL MCHC (31.0-37.0) g/dL Neutrophils # (Manual) (1.3-7.7) k/uL Monocytes # (Manual) (0-1.0) k/uL ABG pH (7.35-7.45) ABG pCO2 (35-45) mmHg ABG pO2 (83-108) mmHg ABG HCO3 (21-25) mmol/L ABG O2 Saturation (94-97) % Chloride 115 H (98-107) mmol/L Carbon Dioxide 18 L (22-30) mmol/L BUN 19 H (7-17) mg/dL POC Glucose (mg/dL) 64 L 108 H (75-99) mg/dL Calcium 8.0 L (8.4-10.2) mg/dL Total Protein 5.2 L (6.3-8.2) g/dL Albumin 2.4 L (3.5-5.0) g/dL 06/22/16 06/22/16 Range/Units 05:10 05:12 WBC 26.8 H* (3.8-10.6) k/uL Hgb 11.3 L (11.4-16.0) gm/dL MCV 101.3 H (80.0-100.0) fL MCHC 28.8 L (31.0-37.0) g/dL Neutrophils # (Manual) 23.7 H (1.3-7.7) k/uL Monocytes # (Manual) 1.6 H (0-1.0) k/uL ABG pH 7.34 L (7.35-7.45) ABG pCO2 34 L (35-45) mmHg ABG pO2 126 H (83-108) mmHg ABG HCO3 18 L (21-25) mmol/L ABG O2 Saturation 99.0 H (94-97) % Chloride (98-107) mmol/L Carbon Dioxide (22-30) mmol/L BUN (7-17) mg/dL POC Glucose (mg/dL) (75-99) mg/dL Calcium (8.4-10.2) mg/dL Total Protein (6.3-8.2) g/dL Albumin (3.5-5.0) g/dL Assessment and Plan Plan: Assessment #1 change in mental status #2 acute respiratory failure #3 SVT #4 COPD #5 multiple comorbid conditions Plan #1 awaiting for the echocardiogram to be performed #2 follow-up with the patient
[2016-06-22] MEDS: MORPHINE SULFATE 4 MG/ML SYRINGE IV PRN ×2 (11:35→15:25)
--- NOTE | 2016-06-22 12:00 | ECHOF ---
Referral Reason:svt MEASUREMENTS -------- HEIGHT: 165.1 cm WEIGHT: 77.1 kg BP: RVIDd: 2.0 cm (< 3.3) IVSd: 1.1 cm (0.6 - 1.1) LVIDd: 3.0 cm (3.9 - 5.3) LVPWd: 1.1 cm (0.6 - 1.1) IVSs: 1.4 cm LVIDs: 2.4 cm LVPWs: 1.1 cm LA Diam: 3.8 cm (2.7 - 3.8) LAESV Index (A-L): 34.91 ml/m Ao Diam: 3.4 cm (2.0 - 3.7) AV Cusp: 2.2 cm (1.5 - 2.6) LA Diam: 4.3 cm (2.7 - 3.8) MV E Lamont: 0.84 m/s MV DecT: 219 ms MV A Lamont: 1.49 m/s MV E/A Ratio: 0.56 RAP: 5.00 mmHg RVSP: 19.70 mmHg FINDINGS -------- Sinus rhythm. This was a technically difficult study with suboptimal views. There is borderline concentric left ventricular hypertrophy. Overall left ventricular systolic function is low-normal with, an EF between 50 - 55 %. The right ventricle is normal in size. The left atrial size is normal. The right atrial size is normal. There is mild aortic valve sclerosis. There is no evidence of aortic regurgitation. Mild mitral annular calcification present. There is trace mitral regurgitation. Mild tricuspid regurgitation present. There is no evidence of pulmonary hypertension. The right ventricular systolic pressure, as measured by Doppler, is 19.70mmHg. There is no pulmonic regurgitation present. The aortic root size is normal. There is no pericardial effusion. CONCLUSIONS -------- 1. This was a technically difficult study with suboptimal views. 2. There is borderline concentric left ventricular hypertrophy. 3. Overall left ventricular systolic function is low-normal with, an EF between 50 - 55 %. 4. There is mild aortic valve sclerosis. 5. Mild mitral annular calcification present. 6. There is trace mitral regurgitation. 7. Mild tricuspid regurgitation present. 8. There is no evidence of pulmonary hypertension. 9. The right ventricular systolic pressure, as measured by Doppler, is 19.70mmHg. REAL ESTATE ASSISTANT: Tere Hampton RDCS
[2016-06-22 12:41] LABS: Glucose,Whole Blood 98 mg/dL (75-99)
[2016-06-22 13:57] LABS: ABG HCO3 16 mmol/L (21-25); ABG PCO2 31 mmHg (35-45); ABG PH 7.31 (7.35-7.45); ABG PO2 86 mmHg (83-108)
[2016-06-22 13:58] LABS: ABG TCO2 16 mmol/L (19-24)
[2016-06-22] MEDS ORDERED: HALOPERIDOL LACTATE 5 MG/ML 1 ML VIAL IVP PRN (15:58)
[2016-06-22 18:05] LABS: Glucose,Whole Blood 105 mg/dL (75-99)
[2016-06-22] MEDS: MORPHINE SULFATE 2 MG/ML SYRINGE IV PRN ×2 (18:19→21:30)
--- NOTE | 2016-06-22 18:24 | PN ---
Patient is an 80-year-old who came in from [facility] ( ) and hypoxic respiratory failure from bacterial meningitis. Patient is on vancomycin and Rocephin at this point of time. Patient is intubated, but patient's family wanted to extubate the patient. ( ) the patient survives ( ) which might as well happen, as patient does not have any primary lung pathology and was intubated secondary to sepsis and protection of the airways. Family wanted us to continue the antibiotics. Patient is a little restless, as we are weaning off the sedation ( ) patient. Patient has Gram-positive cocci in the CSF. REVIEW OF SYSTEMS: Unable to obtain due to her clinical condition. Medications were reviewed. Patient ( ) yesterday, because of which I gave a 2-liter bolus, with which her urine output improved. PHYSICAL EXAMINATION: VITAL SIGNS: Patient had a febrile episode yesterday. Pulse of around 90. Patient has irregularly irregular rhythm. Patient is in atrial fibrillation. Blood pressure is fairly stable at this point of time at around 100/70. RASS score of around minus 1. GENERAL: Patient is intubated, a little restless because we are taking off sedation. HEENT: Pupils are round and equally reacting to light. EOMI. No scleral icterus. No conjunctival pallor. Normocephalic, atraumatic. No pharyngeal erythema. No thyromegaly. CARDIOVASCULAR: S1 and S2 present. No murmurs, rubs, or gallops. PULMONARY: Chest is clear to auscultation, no wheezing or crackles. ABDOMEN: Soft, nontender, nondistended, normoactive bowel sounds. No palpable organomegaly. MUSCULOSKELETAL: No joint swelling or deformity. EXTREMITIES: No cyanosis, clubbing, or pedal edema. NEUROLOGICAL: Moving all 4 limbs. SKIN: No rashes. Laboratory data were reviewed. Patient has worsened leukocytosis at this time. ASSESSMENT AND PLAN: 1. Severe sepsis secondary to bacterial meningitis leading to respiratory failure. Patient is on vancomycin and Rocephin, as mentioned above. 2. Toxic encephalopathy from sepsis. 3. Type 2 [id number]-elevation myocardial infarction on chest x-ray due to demand ischemia from sepsis. 4. Atrial fibrillation precipitated by meningitis. 5. Leukocytosis secondary to sepsis. 6. Hypothyroidism. 7. Chronic obstructive pulmonary disease without any acute exacerbation. 8. Hyperlipidemia. 9. Hypertension. Holding off antihypertensive medication because of ( ). PLAN: Continue with IV fluids. Continue with antibiotic. Extubate the patient. Patient may do well post extubation, as patient does not appear to have any primary lung pathology. Chest x-ray from today was reviewed. ABGs were obtained. We are awaiting clinical improvement from the patient.
[2016-06-22] MEDS: LORazepam 2 MG/ML SYRINGE IV PRN (18:42)
[2016-06-22] MEDS ORDERED: VANCOMYCIN TROUGH DUE 1 EACH MISC MISCELLANE ONE (19:00)
--- NOTE | 2016-06-22 19:57 | P.PN ---
Subjective This patient is a 80-year-old right-handed white female who initially presented to an outside hospital with altered mental status and fever. She was transferred to [facility] for further evaluation. She underwent a lumbar puncture which he did come back positive for acute bacterial meningitis. She was intubated and is currently being closely monitored in the intensive care unit. Spinal fluid analysis reveals evidence of gram-positive cocci most likely streptococcal in nature. Infectious disease was consult as well as ENT. 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 She had evidence of significant otitis interna and externa and was evaluated by ENT yesterday. She continued to show rapid deterioration. She has been started on vancomycin and Rocephin for antibiotic coverage. Computed tomography scan of the brain has been performed and there is no evidence of brain abscess. ENT was planning to do a procedure for the left ear but this has been placed on hold given the patient's poor prognosis. Most likely her bacterial meningitis is Streptococcus pneumoniae. This most common cause of meningitis in situation of otitis media and ear infections. She also has chronic mastoiditis. As noted computed tomography scan of the brain failed to reveal any evidence of brain abscess. Infectious diseases monitoring the patient's condition closely. Case was discussed with family members today by the unloading checker Dr. Lehman in. It is felt that the meningitis as a complication from l left otitis interna. As noted her left Wilson got a medium tympanoplasty has been placed on hold given her poor prognosis. There is been a family meeting and the family is going to make a decision on possible comfort care measures and extubation of the patient given her multiple complex medical issues. The patient was extubated earlier today in the ICU. She has been placed on morphine and Ativan for supportive care. She did have evidence of uncontrolled hypertension earlier today. She is breathing off of the ventilator but remains obtunded and lethargic. Neurologically there is been no improvement in her overall mental status. We will continue close neurological follow-up with the patient in the intensive care unit. Due to her multiple complex medical issues her overall prognosis at this time remains very guarded. Objective - Vital Signs Vital signs: Vital Signs Temp 98.9 F 06/22/16 12:00 Pulse 118 H 06/22/16 15:00 Resp 30 H 06/22/16 15:00 BP 152/69 06/22/16 15:00 Pulse Ox 95 06/22/16 15:00 Intake & Output 06/21/16 06/22/16 06/22/16 18:59 06:59 18:59 Intake Total 1379.68 3731.785 966.4 Output Total 386 345 335 Balance 993.68 3386.785 631.4 Weight 77.4 kg 80.739 kg Intake: IV 1200 900 800 Sodium Chloride 0.9% 1, 600 000 ml @ 100 mls/hr IV . Q10H [facility] Rx#:[id number] Sodium Chloride 0.9% 1, 1200 800 000 ml @ 100 mls/hr IV . Q10H [facility] Rx#:[id number] cefTRIAXone 2,000 mg In 100 200 Sodium Chloride 0.9% 100 ml @ 100 mls/hr IVPB Q12HR [facility] Rx#:[id number] Intake, IV Titration 179.68 2831.785 166.4 Amount Propofol 50 ml As IV .STK 16.4 -[facility] Rx#:[id number] Propofol 500 mg In Empty 54.68 81.785 50 Bag 1 bag @ Titrate IV . Q0M [facility] Rx#:[id number] Sodium Chloride 0.9% 1, 100 000 ml @ 100 mls/hr IV . Q10H [facility] Rx#:[id number] Sodium Chloride 0.9% 500 500 ml @ 999 mls/hr IV .Q31M [facility] Rx#:[id number] Sodium Chloride 0.9% 500 2000 ml @ 999 mls/hr IV .Q31M [facility] Rx#:[id number] Vancomycin 1,500 mg In 125 250 Sodium Chloride 0.9% 250 ml @ 125 mls/hr IVPB Q16H [facility] Rx#:[id number] Output: Urine 386 345 335 Other: Voiding Method Indwelling Catheter Indwelling Catheter Indwelling Catheter ABP, PAP, CO, CI - Last Documented Arterial Blood Pressure 200/101 - Exam Physical examination: PHYSICAL EXAMINATION: Patient is resting comfortably in bed. Patient remains intubated on the ventilator and is unresponsive. VITAL SIGNS: Blood pressure is [146/63]. Heart rate is [117]. Respiration is [19 ]. Temperature is [98.5]. HEENT: Head is atraumatic, neck is supple, there were no carotid bruits. CHEST: Lungs are clear to auscultation and percussion. CARDIAC: S1, S2 normal rate and rhythm. There is no murmur. ABDOMEN: Soft and nontender. Bowel sounds are present. EXTREMITIES: There is no pedal edema. Peripheral pulses are present. Neurological examination: Patient was extubated today. She remains obtunded and lethargic. She has shallow respirations. She arouses only to deep sternal rub. She does not follow any commands. Cranial nerves II through XII grossly intact. Motor examination reveals patient withdraw to painful stimuli only. DTRs are 1+ and symmetric. Plantar response equivocal. - Labs CBC & Chem 7: 06/22/16 05:10 06/22/16 05:10 Labs: Abnormal Lab Results - Last 24 Hours (Table) 06/21/16 06/22/16 06/22/16 Range/Units 19:07 00:30 05:10 WBC (3.8-10.6) k/uL Hgb (11.4-16.0) gm/dL MCV (80.0-100.0) fL MCHC (31.0-37.0) g/dL Neutrophils # (Manual) (1.3-7.7) k/uL Monocytes # (Manual) (0-1.0) k/uL ABG pH (7.35-7.45) ABG pCO2 (35-45) mmHg ABG pO2 (83-108) mmHg ABG HCO3 (21-25) mmol/L ABG Total CO2 (19-24) mmol/L ABG O2 Saturation (94-97) % Chloride 115 H (98-107) mmol/L Carbon Dioxide 18 L (22-30) mmol/L BUN 19 H (7-17) mg/dL POC Glucose (mg/dL) 64 L 108 H (75-99) mg/dL Calcium 8.0 L (8.4-10.2) mg/dL Total Protein 5.2 L (6.3-8.2) g/dL Albumin 2.4 L (3.5-5.0) g/dL 06/22/16 06/22/16 06/22/16 Range/Units 05:10 05:12 13:40 WBC 26.8 H* (3.8-10.6) k/uL Hgb 11.3 L (11.4-16.0) gm/dL MCV 101.3 H (80.0-100.0) fL MCHC 28.8 L (31.0-37.0) g/dL Neutrophils # (Manual) 23.7 H (1.3-7.7) k/uL Monocytes # (Manual) 1.6 H (0-1.0) k/uL ABG pH 7.34 L 7.31 L (7.35-7.45) ABG pCO2 34 L 31 L (35-45) mmHg ABG pO2 126 H (83-108) mmHg ABG HCO3 18 L 16 L (21-25) mmol/L ABG Total CO2 16 L (19-24) mmol/L ABG O2 Saturation 99.0 H (94-97) % Chloride (98-107) mmol/L Carbon Dioxide (22-30) mmol/L BUN (7-17) mg/dL POC Glucose (mg/dL) (75-99) mg/dL Calcium (8.4-10.2) mg/dL Total Protein (6.3-8.2) g/dL Albumin (3.5-5.0) g/dL Microbiology - Last 24 Hours (Table) 06/20/16 20:05 CSF Gram Stain - Preliminary Cerebral Spinal Fluid CSF Culture - Preliminary Streptococcus pneumoniae Assessment and Plan (1) Acute bacterial meningitis Status: Acute Code(s): G00.9 - BACTERIAL MENINGITIS, UNSPECIFIED (2) Acute encephalopathy Status: Acute Code(s): G93.40 - ENCEPHALOPATHY, UNSPECIFIED (3) Acute otitis media of left ear with perforated tympanic membrane Status: Acute Code(s): H66.92 - OTITIS MEDIA, UNSPECIFIED, LEFT EAR; H72.92 - UNSPECIFIED PERFORATION OF TYMPANIC MEMBRANE, LEFT EAR (4) Otitis media Status: Acute Code(s): H66.90 - OTITIS MEDIA, UNSPECIFIED, UNSPECIFIED EAR (5) SIRS (systemic inflammatory response syndrome) Status: Acute Code(s): R65.10 - SIRS OF NON-INFECTIOUS ORIGIN W/O ACUTE ORGAN DYSFUNCTION Plan: This patient is a 80-year-old right-handed white female with complex multiple medical problems currently being evaluated in the intensive care unit. Patient has evidence of acute bacterial meningitis which is been aggressively treated with IV antibiotics. She remains intubated on the ventilator. She had evidence of left otitis media/interna with probable acute bacterial meningitis secondary to the ear infection. CSF spinal fluid was completed and reveals gram -positive cocci suggesting possibility of Streptococcus pneumoniae as underlying pathogen. She is currently on combination of vancomycin and Rocephin. Family is now considering possible comfort care measures for this patient given her multiple complex medical issues. Patient has been made DO NOT RESUSCITATE CODE STATUS at this time. Family is considering possible terminal weaning with extubation of this patient given her multiple complex medical comorbidities and acute bacterial meningitis. Patient was extubated earlier today in the ICU. She continues to show severe obtundation in the intensive care unit.. She has shallow respirations and is being given morphine and Ativan as needed. Given her multiple complex meshed medical issues her overall prognosis remains very guarded. We will continue to follow the patient closely in the intensive care unit. As noted her overall prognosis is very poor. We will continue to follow her neurological condition closely in the ICU setting.
--- NOTE | 2016-06-22 22:16 | P.PN ---
Subjective Principal diagnosis: meningitis 80 year old woman who presents to the emergency center because of difficulty with fever and altered mental status. Initially that she has a known history of difficulties with her ears or she's followed with the [place] [facility] as well as local ENT. 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 In May she suffered a fall in her bathroom resulting in a facial fracture and a nasal fracture. She underwent surgical repair of these was doing relatively well. She over the day before this admission presented emergency center with some otorrhea from her left ear. She is treated with antibiotic therapy oral and topical. Despite this she rapidly deteriorated and presented to her local emergency center. And because of her altered mental status was transferred to our facility. She required intubation with sedation mechanical ventilation. Because of her altered mental status and fever of her lumbar puncture was performed which is markedly abnormal. It with at the infectious diseases consultation was requested. I did talk to the emergency room physician. Antibiotic therapy was clarified as vancomycin and Rocephin 2 g IV piggyback every 12 hours. A computed tomography scan had been performed and there was no evidence of any brain abscess.cultures do not reveal evidence of Streptococcus pneumoniae and isolation can be discontinued. The family has no intervened and have requested withdrawal of aggressive support , but her allowing antibiotic therapy and some supportive care. She is not to be reintubated or receive CPR. Objective - Vital Signs Vital signs: Vital Signs Temp 98.5 F 06/22/16 16:00 Pulse 117 H 06/22/16 19:00 Resp 19 06/22/16 19:00 BP 143/63 06/22/16 19:00 Pulse Ox 93 L 06/22/16 19:00 Intake & Output 06/22/16 06/22/16 06/23/16 06:59 18:59 06:59 Intake Total 3731.785 1266.4 375 Output Total 345 475 120 Balance 3386.785 791.4 255 Weight 80.739 kg Intake: IV 900 1100 325 Sodium Chloride 0.9% 1, 900 100 000 ml @ 100 mls/hr IV . Q10H [facility] Rx#:[id number] Sodium Chloride 0.9% 1, 800 000 ml @ 100 mls/hr IV . Q10H [facility] Rx#:[id number] Vancomycin 1,500 mg In 125 Sodium Chloride 0.9% 250 ml @ 125 mls/hr IVPB Q16H [facility] Rx#:[id number] cefTRIAXone 2,000 mg In 100 200 100 Sodium Chloride 0.9% 100 ml @ 100 mls/hr IVPB Q12HR [facility] Rx#:[id number] Intake, IV Titration 2831.785 166.4 50 Amount Propofol 50 ml As IV .STK 16.4 -[facility] Rx#:[id number] Propofol 500 mg In Empty 81.785 50 50 Bag 1 bag @ Titrate IV . Q0M [facility] Rx#:[id number] Sodium Chloride 0.9% 1, 100 000 ml @ 100 mls/hr IV . Q10H [facility] Rx#:[id number] Sodium Chloride 0.9% 500 500 ml @ 999 mls/hr IV .Q31M [facility] Rx#:[id number] Sodium Chloride 0.9% 500 2000 ml @ 999 mls/hr IV .Q31M [facility] Rx#:[id number] Vancomycin 1,500 mg In 250 Sodium Chloride 0.9% 250 ml @ 125 mls/hr IVPB Q16H [facility] Rx#:[id number] Output: Urine 345 475 120 Other: Voiding Method Indwelling Catheter Indwelling Catheter ABP, PAP, CO, CI - Last Documented Arterial Blood Pressure 200/101 - Exam HEENT: Anicteric conjunctiva are pink and moist nasal mucosa grossly intact without significant lesions, there is no thrush. There is evidence of minimal discharge to the left ear. Appears to have some tenderness upon manipulation to the posterior aspect of the left ear. Right ear is without swelling or tenderness. Neck: The neck is supple without significant lymphadenopathy or thyromegaly. The patient is heavily sedated. Lungs: Good bilateral air entry without significant crackles or wheezing. There is no significant bronchial sounds. There is no egophony or dullness. Heart: Regular rate and rhythm with an audible S1-S2, no S3 no S4. There is no significant murmur click or rub, PMI was nondisplaced. Abdomen: Positive bowel sounds soft and nontender without palpable masses or organomegaly. There was no guarding or rebound. Extremities: The upper extremities have excellent pulses they are symmetric, no significant petechiae or telangiectasia. No splinter hemorrhages were noted. The lower extremities are free from significant edema. The peripheral pulses were 2+ and symmetric. Neuro: extubated with no snapping response to the observer - Labs CBC & Chem 7: 06/22/16 05:10 06/22/16 05:10 Labs: Abnormal Lab Results - Last 24 Hours (Table) 06/22/16 06/22/16 06/22/16 Range/Units 00:30 05:10 05:10 WBC 26.8 H* (3.8-10.6) k/uL Hgb 11.3 L (11.4-16.0) gm/dL MCV 101.3 H (80.0-100.0) fL MCHC 28.8 L (31.0-37.0) g/dL Neutrophils # (Manual) 23.7 H (1.3-7.7) k/uL Monocytes # (Manual) 1.6 H (0-1.0) k/uL ABG pH (7.35-7.45) ABG pCO2 (35-45) mmHg ABG pO2 (83-108) mmHg ABG HCO3 (21-25) mmol/L ABG Total CO2 (19-24) mmol/L ABG O2 Saturation (94-97) % Chloride 115 H (98-107) mmol/L Carbon Dioxide 18 L (22-30) mmol/L BUN 19 H (7-17) mg/dL POC Glucose (mg/dL) 108 H (75-99) mg/dL Calcium 8.0 L (8.4-10.2) mg/dL Total Protein 5.2 L (6.3-8.2) g/dL Albumin 2.4 L (3.5-5.0) g/dL 06/22/16 06/22/16 06/22/16 Range/Units 05:12 13:40 18:03 WBC (3.8-10.6) k/uL Hgb (11.4-16.0) gm/dL MCV (80.0-100.0) fL MCHC (31.0-37.0) g/dL Neutrophils # (Manual) (1.3-7.7) k/uL Monocytes # (Manual) (0-1.0) k/uL ABG pH 7.34 L 7.31 L (7.35-7.45) ABG pCO2 34 L 31 L (35-45) mmHg ABG pO2 126 H (83-108) mmHg ABG HCO3 18 L 16 L (21-25) mmol/L ABG Total CO2 16 L (19-24) mmol/L ABG O2 Saturation 99.0 H (94-97) % Chloride (98-107) mmol/L Carbon Dioxide (22-30) mmol/L BUN (7-17) mg/dL POC Glucose (mg/dL) 105 H (75-99) mg/dL Calcium (8.4-10.2) mg/dL Total Protein (6.3-8.2) g/dL Albumin (3.5-5.0) g/dL Microbiology - Last 24 Hours (Table) 06/20/16 20:05 CSF Gram Stain - Final Cerebral Spinal Fluid CSF Culture - Final Streptococcus pneumoniae Laboratory Results WBC 26.8 k/uL (3.8-10.6) H* 06/22/16 05:10 RBC 3.86 m/uL (3.80-5.40) 06/22/16 05:10 Hgb 11.3 gm/dL (11.4-16.0) L 06/22/16 05:10 Hct 39.1 % (34.0-46.0) 06/22/16 05:10 MCV 101.3 fL (80.0-100.0) H 06/22/16 05:10 MCH 29.2 pg (25.0-35.0) 06/22/16 05:10 MCHC 28.8 g/dL (31.0-37.0) L 06/22/16 05:10 RDW 14.3 % (11.5-15.5) 06/22/16 05:10 Plt Count 160 k/uL (150-450) 06/22/16 05:10 Neutrophils % (Manual) 49.5 % 06/22/16 05:10 Band Neutrophils % 39.0 % 06/22/16 05:10 Lymphocytes % (Manual) 5.5 % 06/22/16 05:10 Monocytes % (Manual) 6.0 % 06/22/16 05:10 Metamyelocytes % 0.5 % 06/21/16 06:40 Neutrophils # (Manual) 23.7 k/uL (1.3-7.7) H 06/22/16 05:10 Lymphocytes # (Manual) 1.5 k/uL (1.0-4.8) 06/22/16 05:10 Monocytes # (Manual) 1.6 k/uL (0-1.0) H 06/22/16 05:10 Nucleated RBCs 0 /100 WBC (0-0) 06/22/16 05:10 Manual Slide Review Performed 06/20/16 18:38 Toxic Granulation Present 06/22/16 05:10 Hypochromasia Marked 06/22/16 05:10 Poikilocytosis (manual Present 06/22/16 05:10 Anisocytosis (manual) Present 06/21/16 06:40 Macrocytosis Slight 06/22/16 05:10 PT 12.2 sec (9.0-12.0) H 06/20/16 18:38 INR 1.2 (<1.1) 06/20/16 18:38 APTT 21.6 sec (22.0-30.0) L 06/20/16 18:38 Sample Site bryant 06/22/16 13:40 ABG pH 7.31 (7.35-7.45) L 06/22/16 13:40 ABG pCO2 31 mmHg (35-45) L 06/22/16 13:40 ABG pO2 86 mmHg (83-108) 06/22/16 13:40 ABG HCO3 16 mmol/L (21-25) L 06/22/16 13:40 ABG Total CO2 16 mmol/L (19-24) L 06/22/16 13:40 ABG O2 Saturation 96.0 % (94-97) 06/22/16 13:40 ABG Base Excess -10.0 mmol/L 06/22/16 13:40 FiO2 36 % 06/22/16 13:40 Sodium 143 mmol/L (137-145) 06/22/16 05:10 Potassium 3.8 mmol/L (3.5-5.1) 06/22/16 05:10 Chloride 115 mmol/L (98-107) H 06/22/16 05:10 Carbon Dioxide 18 mmol/L (22-30) L 06/22/16 05:10 Anion Gap 10 mmol/L 06/22/16 05:10 BUN 19 mg/dL (7-17) H 06/22/16 05:10 Creatinine 0.83 mg/dL (0.52-1.04) 06/22/16 05:10 Est GFR (MDRD) Af Amer >60 (>60 ml/min/1.73 sqM) 06/22/16 05:10 Est GFR (MDRD) Non-Af >60 (>60 ml/min/1.73 sqM) 06/22/16 05:10 Glucose 94 mg/dL (74-99) 06/22/16 05:10 POC Glucose (mg/dL) 105 mg/dL (75-99) H 06/22/16 18:03 POC Glu Lining [place] Blindstitch ID Gwen Chung 06/22/16 18:03 Plasma Lactic Acid Roge 1.4 mmol/L (0.7-2.0) 06/21/16 06:40 Calcium 8.0 mg/dL (8.4-10.2) L 06/22/16 05:10 Phosphorus 3.3 mg/dL (2.5-4.5) 06/21/16 06:40 Magnesium 2.1 mg/dL (1.6-2.3) 06/22/16 05:10 Total Bilirubin 0.3 mg/dL (0.2-1.3) 06/22/16 05:10 AST 27 U/L (14-36) 06/22/16 05:10 ALT 24 U/L (9-52) 06/22/16 05:10 Alkaline Phosphatase 79 U/L (38-126) 06/22/16 05:10 Total Creatine Kinase 95 U/L (30-135) 06/21/16 06:40 CK-MB (CK-2) 6.3 ng/mL (0.0-2.4) H* 06/21/16 06:40 CK-MB (CK-2) Rel Index 6.6 06/21/16 06:40 Troponin I 1.150 ng/mL (0.000-0.034) H* 06/21/16 06:40 Total Protein 5.2 g/dL (6.3-8.2) L 06/22/16 05:10 Albumin 2.4 g/dL (3.5-5.0) L 06/22/16 05:10 Cortisol 32 ug/dL 06/20/16 18:38 Urine Color Yellow 06/20/16 18:38 Urine Appearance Clear (Clear) 06/20/16 18:38 Urine pH 6.0 (5.0-8.0) 06/20/16 18:38 Ur Specific [place] 1.025 (1.001-1.035) 06/20/16 18:38 Urine Protein 1+ (Negative) H 06/20/16 18:38 Urine Glucose (UA) Negative (Negative) 06/20/16 18:38 Urine Ketones Negative (Negative) 06/20/16 18:38 Urine Blood Large (Negative) H 06/20/16 18:38 Urine Nitrate Negative (Negative) 06/20/16 18:38 Urine Bilirubin Negative (Negative) 06/20/16 18:38 Urine Urobilinogen <2.0 mg/dL (<2.0) 06/20/16 18:38 Ur Leukocyte Esterase Negative (Negative) 06/20/16 18:38 Urine RBC >182 /hpf (0-5) H 06/20/16 18:38 Urine WBC 2 /hpf (0-5) 06/20/16 18:38 Ur Squamous Epith Cells <1 /hpf (0-4) 06/20/16 18:38 Amorphous Sediment Occasional /hpf (None) H 06/20/16 18:38 Urine Mucus Rare /hpf (None) H 06/20/16 18:38 CSF Tube Number 4 06/20/16 20:05 CSF Volume 3.0 06/20/16 20:05 CSF Appearance Cloudy 06/20/16 20:05 CSF Color Xanthochromic 06/20/16 20:05 CSF RBC 6 u/L (0-10) 06/20/16 20:05 CSF Tot Nucleated Cells 41040 u/L (0-5) H 06/20/16 20:05 CSF Mononuclear WBCs % 5 % 06/20/16 20:05 CSF Polynuclear WBCs % 95 % 06/20/16 20:05 CSF Glucose <20 mg/dL (40-70) L 06/20/16 20:05 CSF Total Protein >600 mg/dL (12-60) H 06/20/16 20:05 Vancomycin Trough 14.2 ug/mL 06/22/16 20:33 Influenza Type A RNA Not Detected (Not Detectd) 06/20/16 18:38 Influenza Type B (PCR) Not Detected (Not Detectd) 06/20/16 18:38 Microbiology 06/20/16 18:38 Blood Blood Culture - Preliminary No Growth after 48 hours 06/20/16 20:05 Cerebral Spinal Fluid CSF Gram Stain - Final 06/20/16 20:05 Cerebral Spinal Fluid CSF Culture - Final Streptococcus pneumoniae 06/20/16 18:38 Urine,Catheterized Urine Culture - Final Assessment and Plan (1) Acute bacterial meningitis Narrative/Plan: 80-year-old female who is known history of chronic mastoiditis with otitis media. She is evidence of recent fall with nasal fractures and some residual inflammation of her sinus cavities. However it appears that the chronic infection to the left ear has resulted in the current meningitis. The laboratories revealing evidence of gram-positive cocci which has now shown Streptococcus pneumoniae which is on the most common causes of meningitis in this situation. While cultures are pending antibiotic therapy as a vancomycin therapy as well as high-dose ceftriaxone at 2 g IV piggyback every 12 hours. The computed tomography scan has been evaluated with no evidence of any brain abscess. An consequently would not need add metronidazole at this time. Would continue ongoing supportive care. She's not requiring vasopressors at this time. She has a significant leukocytosis and the basis of her meningitis. The lactic acid has improved to 1.4 after her resuscitation. patient has been extubated receiving aggressive therapy this time withoutplans of reintubation or CPR. Her prognosis is quite poor. Status: Acute (2) Fever Status: Acute (3) Chronic mastoiditis of left side Status: Acute
[2016-06-23 00:06] LABS: Glucose,Whole Blood 119 mg/dL (75-99)
[2016-06-23] MEDS: MORPHINE SULFATE 2 MG/ML SYRINGE IV PRN (03:26)
[2016-06-23] MEDS: SODIUM CHLORIDE 0.9% 1,000 ML IV SCH (03:26)
[2016-06-23] MEDS: LORazepam 2 MG/ML SYRINGE IV PRN (05:07)
[2016-06-23 05:47] LABS: Basophils # (A) 0.1 k/uL (0-0.2); Basophils % (A) 0 %; CH 29.1; CHCM 28.1; Eosinophils % (A) 0 %; HCT 43.5 % (34.0-46.0); HDW 2.23; HGB 12.5 gm/dL (11.4-16.0); Hypochromasia Marked; Luc # (Auto) 0.32; Luc % (Auto) 1; Lymphocytes # (A) 0.6 k/uL (1.0-4.8); Lymphocytes % (A) 2 %; MCHC 28.8 g/dL (31.0-37.0); MCV 104.1 fL (80.0-100.0); Macrocytosis Slight; Monocytes % (A) 3 %; Neutrophils # (A) 29.4 k/uL (1.3-7.7); Neutrophils % (A) 94 %; RBC 4.18 m/uL (3.80-5.40); RDW 14.2 % (11.5-15.5); WBC (Perox) 32.82
[2016-06-23 05:52] LABS: WBC 31.5 k/uL (3.8-10.6)
[2016-06-23] MEDS ORDERED: LORazepam 2 MG/ML SYRINGE IV PRN ×2 (06:03→14:10)
[2016-06-23] MEDS ORDERED: MORPHINE SULFATE 4 MG/ML SYRINGE IV PRN (06:03)
[2016-06-23] MEDS ORDERED: MORPHINE SULFATE (100 MG/2 ML) 100 MG in SODIUM CHLORIDE 0.9% 100 ML IV SCH (06:15)
[2016-06-23 06:27] LABS: Anion Gap 13 mmol/L; Blood Urea Nitrogen 15 mg/dL (7-17); Calcium 8.9 mg/dL (8.4-10.2); Carbon Dioxide 16 mmol/L (22-30); Chloride 118 mmol/L (98-107); Glucose 99 mg/dL (74-99); Non-African American GFR(MDRD) >60 (>60 ml/min/1.73 sqM); Potassium 4.5 mmol/L (3.5-5.1); Sodium 147 mmol/L (137-145)
[2016-06-23] MEDS: IPRATROPIUM-ALBUTEROL 3 ML NEB INHALATION SCH ×2 (08:47→11:50)
[2016-06-23 08:53] VITALS: BP 199/99; PULSE 110; RESP 23; TEMP 99.1
[2016-06-23] MEDS ORDERED: FAMOTIDINE 20 MG/2 ML VIAL IV SCH (09:00)
[2016-06-23] MEDS ORDERED: ONDANSETRON 4 MG/2 ML VIAL IVP PRN (14:02)
[2016-06-23] MEDS ORDERED: SODIUM CHLORIDE 0.65% NASAL SPRAY 44 ML BTL NASAL PRN (14:03)
[2016-06-23] MEDS ORDERED: ARTIFICIAL TEARS-HYPROMELLOSE DROPS 15 ML BTL BOTH EYES PRN (14:03)
[2016-06-23] MEDS ORDERED: ACETAMINOPHEN SUPPOSITORY 650 MG SUPP RECTAL PRN (14:08)
[2016-06-23] MEDS ORDERED: BISACODYL 10 MG SUPP RECTAL PRN (14:09)
--- NOTE | 2016-06-23 14:57 | PN ---
Patient is an 80-year-old admitted with bacterial meningitis. As per the family request, patient was extubated yesterday. Patient was in severe sepsis and was on antibiotics and after extubation, yesterday's plan was to continue the treatment if patient's survives which might as well happened, as patient does not have any primary cardiopulmonary pathology and patient although did not do well and patient was in severe respiratory distress and patient was also tossing and turning and appeared to be in pain and patient infection did not appear to have improved with fevers, because of that reason, family requested comfort care and hospice, which is reasonable and patient was subsequently made hospice. REVIEW OF SYSTEM: Irrelevant at this time. MEDICATIONS: Patient was changed to morphine drip and Ativan as needed for comfort and any dyspnea. PHYSICAL EXAMINATION: VITAL SIGNS: Temperature 99.1, pulse of 110, respiratory rate 23, blood pressure is 119/99, saturating at 95% on 4 L of O2 which is for comfort. GENERAL EXAMINATION: Patient appears to be comfortable, not tachycardic. CARDIOVASCULAR: Not tachycardic. S1 and S2 present. LUNGS: Breath sounds present bilaterally. EXTREMITIES: Patient is drowsy and sleeping and sedated because of the IV morphine. Laboratory data was reviewed but not relevant at this point of time. ASSESSMENT AND PLAN: 1. Severe sepsis secondary to bacterial meningitis. 2. Toxic encephalopathy from sepsis. 3. [id number] myocardial infarction. 4. Atrial fibrillation with rapid ventricular rate. 5. Hypothyroidism. 6. Chronic obstructive pulmonary disease. 7. Hyperlipidemia. 8. Hypertension. PLAN: Comfort care and as mentioned above.
--- NOTE | 2016-06-23 15:25 | DS ---
DATE OF ADMISSION: 06/20/2016 DATE OF DISCHARGE: 06/23/2016 Please consider my progress note a discharge summary.
--- NOTE | 2016-06-23 19:06 | P.PN ---
Subjective Principal diagnosis: meningitis 80 year old woman who presents to the emergency center because of difficulty with fever and altered mental status. Initially that she has a known history of difficulties with her ears or she's followed with the [place] [facility] into as well as local ENT. 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 In May she suffered a fall in her bathroom resulting in a facial fracture and a nasal fracture. She underwent surgical repair of these was doing relatively well. She over the day before this admission presented emergency center with some otorrhea from her left ear. She is treated with antibiotic therapy oral and topical. Despite this she rapidly deteriorated and presented to her local emergency center. And because of her altered mental status was transferred to our facility. She required intubation with sedation mechanical ventilation. Because of her altered mental status and fever of her lumbar puncture was performed which is markedly abnormal. It with at the infectious diseases consultation was requested. I did talk to the emergency room physician. Antibiotic therapy was clarified as vancomycin and Rocephin 2 g IV piggyback every 12 hours. A computed tomography scan had been performed and there was no evidence of any brain abscess.cultures do not reveal evidence of Streptococcus pneumoniae and isolation can be discontinued. The family has no intervened and have requested withdrawal of aggressive support , originally allowing some further treatments. But now being transitioned to comfort care process. Objective - Vital Signs Vital signs: Vital Signs Temp 99.1 F 06/23/16 08:45 Pulse 110 H 06/23/16 08:45 Resp 23 06/23/16 08:45 BP 199/99 06/23/16 08:45 Pulse Ox 95 06/23/16 08:45 Intake & Output 06/23/16 06/23/16 06/24/16 06:59 18:59 06:59 Intake Total 1375 15 Output Total 840 975 Balance 535 -960 Weight 82.4 kg Intake: IV 1325 15 Sodium Chloride 0.9% 1, 1100 15 000 ml @ 100 mls/hr IV . Q10H [facility] Rx#:[id number] Vancomycin 1,500 mg In 125 Sodium Chloride 0.9% 250 ml @ 125 mls/hr IVPB Q16H [facility] Rx#:[id number] cefTRIAXone 2,000 mg In 100 Sodium Chloride 0.9% 100 ml @ 100 mls/hr IVPB Q12HR [facility] Rx#:[id number] Intake, IV Titration 50 Amount Propofol 500 mg In Empty 50 Bag 1 bag @ Titrate IV . Q0M [facility] Rx#:[id number] Output: Urine 840 975 Other: Voiding Method Indwelling Catheter Indwelling Catheter ABP, PAP, CO, CI - Last Documented Arterial Blood Pressure 200/101 - Exam HEENT: Anicteric conjunctiva are pink and moist nasal mucosa grossly intact without significant lesions, there is no thrush. There is evidence of minimal discharge to the left ear. Appears to have some tenderness upon manipulation to the posterior aspect of the left ear. Right ear is without swelling or tenderness. Neck: The neck is supple without significant lymphadenopathy or thyromegaly. The patient is heavily sedated. Lungs: Good bilateral air entry without significant crackles or wheezing. There is no significant bronchial sounds. There is no egophony or dullness. Heart: Regular rate and rhythm with an audible S1-S2, no S3 no S4. There is no significant murmur click or rub, PMI was nondisplaced. Abdomen: Positive bowel sounds soft and nontender without palpable masses or organomegaly. There was no guarding or rebound. Extremities: The upper extremities have excellent pulses they are symmetric, no significant petechiae or telangiectasia. No splinter hemorrhages were noted. The lower extremities are free from significant edema. The peripheral pulses were 2+ and symmetric. Neuro: extubated with no response to the observer - Labs CBC & Chem 7: 06/23/16 04:55 06/23/16 04:55 Labs: Abnormal Lab Results - Last 24 Hours (Table) 06/23/16 06/23/16 06/23/16 Range/Units 00:05 04:55 04:55 WBC 31.5 H* (3.8-10.6) k/uL MCV 104.1 H (80.0-100.0) fL MCHC 28.8 L (31.0-37.0) g/dL Neutrophils # 29.4 H (1.3-7.7) k/uL Lymphocytes # 0.6 L (1.0-4.8) k/uL Sodium 147 H (137-145) mmol/L Chloride 118 H (98-107) mmol/L Carbon Dioxide 16 L (22-30) mmol/L POC Glucose (mg/dL) 119 H (75-99) mg/dL Microbiology - Last 24 Hours (Table) 06/20/16 20:05 CSF Gram Stain - Final Cerebral Spinal Fluid CSF Culture - Final Streptococcus pneumoniae Laboratory Results WBC 31.5 k/uL (3.8-10.6) H* 06/23/16 04:55 RBC 4.18 m/uL (3.80-5.40) 06/23/16 04:55 Hgb 12.5 gm/dL (11.4-16.0) 06/23/16 04:55 Hct 43.5 % (34.0-46.0) 06/23/16 04:55 MCV 104.1 fL (80.0-100.0) H 06/23/16 04:55 MCH 30.0 pg (25.0-35.0) 06/23/16 04:55 MCHC 28.8 g/dL (31.0-37.0) L 06/23/16 04:55 RDW 14.2 % (11.5-15.5) 06/23/16 04:55 Plt Count 180 k/uL (150-450) 06/23/16 04:55 Neutrophils % 94 % 06/23/16 04:55 Neutrophils % (Manual) 49.5 % 06/22/16 05:10 Band Neutrophils % 39.0 % 06/22/16 05:10 Lymphocytes % 2 % 06/23/16 04:55 Lymphocytes % (Manual) 5.5 % 06/22/16 05:10 Monocytes % 3 % 06/23/16 04:55 Monocytes % (Manual) 6.0 % 06/22/16 05:10 Eosinophils % 0 % 06/23/16 04:55 Basophils % 0 % 06/23/16 04:55 Metamyelocytes % 0.5 % 06/21/16 06:40 Neutrophils # 29.4 k/uL (1.3-7.7) H 06/23/16 04:55 Neutrophils # (Manual) 23.7 k/uL (1.3-7.7) H 06/22/16 05:10 Lymphocytes # 0.6 k/uL (1.0-4.8) L 06/23/16 04:55 Lymphocytes # (Manual) 1.5 k/uL (1.0-4.8) 06/22/16 05:10 Monocytes # 1.0 k/uL (0-1.0) 06/23/16 04:55 Monocytes # (Manual) 1.6 k/uL (0-1.0) H 06/22/16 05:10 Eosinophils # 0.0 k/uL (0-0.7) 06/23/16 04:55 Basophils # 0.1 k/uL (0-0.2) 06/23/16 04:55 Nucleated RBCs 0 /100 WBC (0-0) 06/22/16 05:10 Manual Slide Review Performed 06/20/16 18:38 Toxic Granulation Present 06/22/16 05:10 Hypochromasia Marked 06/23/16 04:55 Poikilocytosis (manual Present 06/22/16 05:10 Anisocytosis (manual) Present 06/21/16 06:40 Macrocytosis Slight 06/23/16 04:55 PT 12.2 sec (9.0-12.0) H 06/20/16 18:38 INR 1.2 (<1.1) 06/20/16 18:38 APTT 21.6 sec (22.0-30.0) L 06/20/16 18:38 Sample Site megan 06/22/16 13:40 ABG pH 7.31 (7.35-7.45) L 06/22/16 13:40 ABG pCO2 31 mmHg (35-45) L 06/22/16 13:40 ABG pO2 86 mmHg (83-108) 06/22/16 13:40 ABG HCO3 16 mmol/L (21-25) L 06/22/16 13:40 ABG Total CO2 16 mmol/L (19-24) L 06/22/16 13:40 ABG O2 Saturation 96.0 % (94-97) 06/22/16 13:40 ABG Base Excess -10.0 mmol/L 06/22/16 13:40 FiO2 36 % 06/22/16 13:40 Sodium 147 mmol/L (137-145) H 06/23/16 04:55 Potassium 4.5 mmol/L (3.5-5.1) 06/23/16 04:55 Chloride 118 mmol/L (98-107) H 06/23/16 04:55 Carbon Dioxide 16 mmol/L (22-30) L 06/23/16 04:55 Anion Gap 13 mmol/L 06/23/16 04:55 BUN 15 mg/dL (7-17) 06/23/16 04:55 Creatinine 0.63 mg/dL (0.52-1.04) 06/23/16 04:55 Est GFR (MDRD) Af Amer >60 (>60 ml/min/1.73 sqM) 06/23/16 04:55 Est GFR (MDRD) Non-Af >60 (>60 ml/min/1.73 sqM) 06/23/16 04:55 Glucose 99 mg/dL (74-99) 06/23/16 04:55 POC Glucose (mg/dL) 119 mg/dL (75-99) H 06/23/16 00:05 POC Glu Auto Transmission Technician ID 06/23/16 00:05 Plasma Lactic Acid [place] 1.4 mmol/L (0.7-2.0) 06/21/16 06:40 Calcium 8.9 mg/dL (8.4-10.2) 06/23/16 04:55 Phosphorus 3.3 mg/dL (2.5-4.5) 06/21/16 06:40 Magnesium 2.1 mg/dL (1.6-2.3) 06/22/16 05:10 Total Bilirubin 0.3 mg/dL (0.2-1.3) 06/22/16 05:10 AST 27 U/L (14-36) 06/22/16 05:10 ALT 24 U/L (9-52) 06/22/16 05:10 Alkaline Phosphatase 79 U/L (38-126) 06/22/16 05:10 Total Creatine Kinase 95 U/L (30-135) 06/21/16 06:40 CK-MB (CK-2) 6.3 ng/mL (0.0-2.4) H* 06/21/16 06:40 CK-MB (CK-2) Rel Index 6.6 06/21/16 06:40 Troponin I 1.150 ng/mL (0.000-0.034) H* 06/21/16 06:40 Total Protein 5.2 g/dL (6.3-8.2) L 06/22/16 05:10 Albumin 2.4 g/dL (3.5-5.0) L 06/22/16 05:10 Cortisol 32 ug/dL 06/20/16 18:38 Urine Color Yellow 06/20/16 18:38 Urine Appearance Clear (Clear) 06/20/16 18:38 Urine pH 6.0 (5.0-8.0) 06/20/16 18:38 Ur Specific [place] 1.025 (1.001-1.035) 06/20/16 18:38 Urine Protein 1+ (Negative) H 06/20/16 18:38 Urine Glucose (UA) Negative (Negative) 06/20/16 18:38 Urine Ketones Negative (Negative) 06/20/16 18:38 Urine Blood Large (Negative) H 06/20/16 18:38 Urine Nitrate Negative (Negative) 06/20/16 18:38 Urine Bilirubin Negative (Negative) 06/20/16 18:38 Urine Urobilinogen <2.0 mg/dL (<2.0) 06/20/16 18:38 Ur Leukocyte Esterase Negative (Negative) 06/20/16 18:38 Urine RBC >182 /hpf (0-5) H 06/20/16 18:38 Urine WBC 2 /hpf (0-5) 06/20/16 18:38 Ur Squamous Epith Cells <1 /hpf (0-4) 06/20/16 18:38 Amorphous Sediment Occasional /hpf (None) H 06/20/16 18:38 Urine Mucus Rare /hpf (None) H 06/20/16 18:38 CSF Tube Number 4 06/20/16 20:05 CSF Volume 3.0 06/20/16 20:05 CSF Appearance Cloudy 06/20/16 20:05 CSF Color Xanthochromic 06/20/16 20:05 CSF RBC 6 u/L (0-10) 06/20/16 20:05 CSF Tot Nucleated Cells 74511 u/L (0-5) H 06/20/16 20:05 CSF Mononuclear WBCs % 5 % 06/20/16 20:05 CSF Polynuclear WBCs % 95 % 06/20/16 20:05 CSF Glucose <20 mg/dL (40-70) L 06/20/16 20:05 CSF Total Protein >600 mg/dL (12-60) H 06/20/16 20:05 Vancomycin Trough 14.2 ug/mL 06/22/16 20:33 Influenza Type A RNA Not Detected (Not Detectd) 06/20/16 18:38 Influenza Type B (PCR) Not Detected (Not Detectd) 06/20/16 18:38 Microbiology 06/20/16 18:38 Blood Blood Culture - Preliminary No Growth after 48 hours 06/20/16 20:05 Cerebral Spinal Fluid CSF Gram Stain - Final 06/20/16 20:05 Cerebral Spinal Fluid CSF Culture - Final Streptococcus pneumoniae 06/20/16 18:38 Urine,Catheterized Urine Culture - Final Assessment and Plan (1) Acute bacterial meningitis Narrative/Plan: 80-year-old female who is known history of chronic mastoiditis with otitis media. She is evidence of recent fall with nasal fractures and some residual inflammation of her sinus cavities. However it appears that the chronic infection to the left ear has resulted in the current meningitis. The laboratories revealing evidence of gram-positive cocci which has now shown Streptococcus pneumoniae which is on the most common causes of meningitis in this situation. The patient does have a penicillin susceptible strep coccus pneumoniae meningitis. She has been on appropriate antibiotic therapy. However given her very poor status the family has decided for comfort care which is completely appropriate. She was transitioned to that today. Please contact me for any further intervention Status: Acute (2) Fever Status: Acute (3) Chronic mastoiditis of left side Status: Acute
--- NOTE | 2016-06-24 09:43 | PN ---
This patient was moved out of the intensive care unit. Please refer to my earlier dictations regarding the course here in the ICU. The patient had bacterial meningitis, a complication of otitis interna. Family opted to extubate the patient knowing that she had a DNR/DNI CODE STATUS and she did not want to receive this form of medical care. As such, the patient was extubated. She remained completely unresponsive. Hospice is at the bedside. The patient moved to private room for further comfort measures. Pulmonary critical care will sign off.
== END 2016-06-23 14:14 | disposition hospice, inpatient (51) | DRG 871 ==
LOC: EC 17:51 → 6ICU 19:24
PROVIDERS: ADMIT Hospitalist; ATTEND Hospitalist
PROC: 5A1945Z Respiratory Ventilation, 24-96 Consecutive Hours (ICD-10-PCS; principal; 2016-06-20)
PROC: 0BH17EZ Insertion of Endotracheal Airway into Trachea, Via Natural or Artificial Opening (ICD-10-PCS; 2016-06-20)
PROC: 009U3ZX Drainage of Spinal Canal, Percutaneous Approach, Diagnostic (ICD-10-PCS; 2016-06-20)
DX: A41.9 Sepsis, unspecified organism (principal); G92 Toxic encephalopathy; I21.4 Non-ST elevation (NSTEMI) myocardial infarction; J96.01 Acute respiratory failure with hypoxia; G00.1 Pneumococcal meningitis; I47.1 Supraventricular tachycardia; G70.00 Myasthenia gravis without (acute) exacerbation; F03.90 Unspecified dementia, unspecified severity, without behavioral disturbance, psychotic disturbance, mood disturbance, and anxiety; E03.9 Hypothyroidism, unspecified; E78.5 Hyperlipidemia, unspecified; H60.90 Unspecified otitis externa, unspecified ear; H70.12 Chronic mastoiditis, left ear; H91.90 Unspecified hearing loss, unspecified ear; I10 Essential (primary) hypertension; I48.91 Unspecified atrial fibrillation; J32.4 Chronic pansinusitis; J44.9 Chronic obstructive pulmonary disease, unspecified; K21.9 Gastro-esophageal reflux disease without esophagitis; R65.20 Severe sepsis without septic shock; H72.92 Unspecified perforation of tympanic membrane, left ear; H83.02 Labyrinthitis, left ear; H66.92 Otitis media, unspecified, left ear; Z51.5 Encounter for palliative care; Z66 Do not resuscitate; Z87.891 Personal history of nicotine dependence; Z96.653 Presence of artificial knee joint, bilateral; Z79.899 Other long term (current) drug therapy; Z88.1 Allergy status to other antibiotic agents
CPT/HCPCS: 36415; 36600; 62270; 70450; 70480; 71010; 80048; 80053; 80202; 81001; 82533; 82550; 82553; 82805; 82945; 83605; 83735; 84100; 84157; 84484; 85025; 85610; 85730; 87040; 87070; 87077; 87086; 87186; 87205; 87502; 89050; 93005; 93306; 94002; 94003; 94640; 96361; 96365; 96366; 96368; 96375; 99291

== ENCOUNTER 2016-06-23 14:33 | Inpatient (IN) | payer MEDICAID ==
[2016-06-23] MEDS ORDERED: MORPHINE SULFATE 2 MG/ML SYRINGE IVP PRN (14:56)
[2016-06-23] MEDS ORDERED: LORazepam 2 MG/ML SYRINGE IV PRN (14:59)
[2016-06-23] MEDS ORDERED: MORPHINE SULFATE 100 MG in SODIUM CHLORIDE 0.9% 100 ML IV SCH (15:00)
[2016-06-23] MEDS ORDERED: ACETAMINOPHEN SUPPOSITORY 650 MG SUPP RECTAL PRN (15:00)
[2016-06-23] MEDS ORDERED: BISACODYL 10 MG SUPP RECTAL PRN (15:01)
[2016-06-23] MEDS ORDERED: ONDANSETRON 4 MG/2 ML VIAL IVP PRN (15:02)
[2016-06-23] MEDS ORDERED: ARTIFICIAL TEARS-HYPROMELLOSE DROPS 15 ML BTL BOTH EYES PRN (15:02)
[2016-06-23] MEDS ORDERED: SODIUM CHLORIDE 0.65% NASAL SPRAY 44 ML BTL NASAL PRN (15:03)
[2016-06-23 15:40] VITALS: BP 200/97
[2016-06-23] MEDS ORDERED: SCOPOLAMINE 1.5MG/72HR PATCH TRANSDERM SCH (16:00)
[2016-06-23 16:32] VITALS: PULSE 120
[2016-06-23 21:48] VITALS: RESP 20
--- NOTE | 2016-07-12 08:31 | DS ---
DATE OF ADMISSION: 06/23/2016 DATE OF DISCHARGE: 06/23/2016 DATE OF SERVICE: 06/23/2016 Patient was comfort care and patient . Preliminary caused of is bacterial meningitis. Please refer to my dictation of progress note for further details on that day.
== END 2016-06-23 22:30 | disposition expired | DRG 94 ==
LOC: 4MS4W 14:33
PROVIDERS: ADMIT Hospitalist; ATTEND Hospitalist
DX: G00.1 Pneumococcal meningitis (principal); G92 Toxic encephalopathy; I48.91 Unspecified atrial fibrillation; J44.9 Chronic obstructive pulmonary disease, unspecified; H70.009 Acute mastoiditis without complications, unspecified ear; Z66 Do not resuscitate; H83.09 Labyrinthitis, unspecified ear; H70.10 Chronic mastoiditis, unspecified ear; K21.9 Gastro-esophageal reflux disease without esophagitis; E78.5 Hyperlipidemia, unspecified; I10 Essential (primary) hypertension; E03.9 Hypothyroidism, unspecified; Z90.49 Acquired absence of other specified parts of digestive tract; Z79.2 Long term (current) use of antibiotics; Z79.899 Other long term (current) drug therapy